=== PATIENT | female | born 1975 | race Hispanic/Latino ===

== ENCOUNTER → 2019-03-15 | Day surgery (SDC) | payer BC ==
[2019-03-12 12:26] LABS: BASOPHILS % 0.8 % (0.0-1.0); EOSINOPHILS # (AUTO) 0.2 (0.0-0.4); HEMATOCRIT 40.2 % (34.2-44.1); HEMOGLOBIN 13.6 g/dL (12.0-16.0); LYMPHOCYTES # (AUTO) 1.9 (1.0-3.2); LYMPHOCYTES % 39.7 % (18.0-39.1); MEAN CORPUSCULAR HEMOGLOBIN 30.4 pg (28-32); MEAN CORPUSCULAR HGB CONC 33.8 g/dL (31-35); MEAN CORPUSCULAR VOLUME 89.9 fL (81-99); MONOCYTES # (AUTO) 0.4 (0.2-0.8); MONOCYTES % 8.9 % (4.4-11.3); NEUTROPHILS # (AUTO) 2.2 (2.1-6.9); NEUTROPHILS % 46.4 % (38.7-80.0); PLATELET COUNT 216 x10e3/uL (140-360); RED BLOOD COUNT 4.47 x10e6/uL (3.6-5.1)
--- NOTE | 2019-03-12 13:58 | Diagnostic Imaging Report ---
Chest, 2 views, 03/12/2019. History: Preop, foot surgery. Comparison: None available. Findings: The cardiomediastinal silhouette and pulmonary vasculature are within normal limits. The lungs are clear without evidence of consolidation or pleural effusion. Degenerative changes are noted in the thoracic spine. There are no acute osseous or soft tissue abnormalities. Impression: No acute cardiopulmonary abnormality. Signed by: Jn Perera on 03/12/2019 1:54 PM
[2019-03-12 19:16] LABS: ANION GAP 14.8 mmol/L (8-16); BLOOD UREA NITROGEN 15 mg/dL (7-26); BUN/CREATININE RATIO 20 (6-25); CARBON DIOXIDE 25 mmol/L (22-29); CHLORIDE 106 mmol/L (98-107); CREATININE, SERUM 0.75 mg/dL (0.57-1.11); EST GLOMERULAR FILTRATION RATE > 60 ML/MIN (60-); GLUCOSE 68 mg/dL (74-118); POTASSIUM 4.8 mmol/L (3.5-5.1); SODIUM 141 mmol/L (136-145)
[~2019-03-15] MED LIST: B12 PO; BLACK COHOSH160 MG PO; BUPIVACAINE HCL 0.5% INJ 30 ML VIAL INJ ONE; CEFAZOLIN SOD 1 GM VIAL ONE; DEXAMETHASONE SOD PHOS INJ 4 MG/ML VIAL ONE; FENTANYL CITRATE/PF 100MCG/2 ML INJ ONE; FERROUS SULFAT324 MG PO; FIBER TABS625 MG PO; FISH OIL CONC1000 MG PO; HAIR, SKIN & N1 EACH PO; HYDROMORPHONE 1MG/1ML INJ ONE; KETAMINE HCL INJ 50 MG/ML 10 ML VIAL ONE; KETOROLAC TROMETHAMINE 30 MG/ML VIAL ONE; LIDOCAINE HCL 2% LOCAL INJ 5 ML SDV VIAL INJ ONE; MACA500 MG PO; MIDAZOLAM HCL 2 MG/2 ML VIAL ONE; MIDAZOLAM HCL 5MG/ML 2ML VIAL ONE; NEOSTIGMINE 1 MG/ML 10ML VIAL ONE; ONDANSETRON HCL INJ 2MG/ML 2ML 2 MG/ML VIAL ONE; PROPOFOL IV EMULSION 10 MG/ML 20 ML VIAL ONE; VITAMIN D400 UNIT PO; WOMENS ONE A DAY PO
--- OUTSIDE RECORDS SUMMARY | 2019-03-15 06:11 | XMS REPORT | Continuity of Care Document ---
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 Name Role Phone [employer] Unavailable Unavailable Problems Problem Status Onset Date Classification Date Reported Comments Source 6 MONTH FU Active 10/19/2018 [facility] UNK Active 07/13/2018 [facility] Fibrosclerosis of left breast 05/09/2018 11/13/2018 [facility] Other specified disorders of breast 04/25/2018 11/05/2018 [facility] MASS Active 04/18/2018 [facility] Encounter for screening mammogram for malignant neoplasm of breast 04/14/2018 10/15/2018 [facility] DX: LEFT ASYMMETRIC DENSITY Active 04/04/2018 [facility] SCREENINGNO PAIN,LUMPS OR DC Active 03/16/2018 [facility] Z12.31 Active 01/27/2017 [facility] CPT 75797, IRON DEFICIENCY ANEMIA D50.9 Active 07/24/2015 [facility] Atypical endometrial hyperplasia (disorder) Active Problem 01/23/2019 [facility] Impaired glucose tolerance (disorder) Resolved Problem 01/23/2019 [facility] Cough (finding) Active Problem 01/23/2019 [facility] Iron deficiency anemia (disorder) Active Problem 01/23/2019 [facility] Irregular heart beat (finding) Resolved Problem 01/23/2019 [facility] Numbness of upper limb (finding) Active Problem 01/23/2019 right [facility] Prolapsed lumbar intervertebral disc (disorder) Active Problem 01/23/2019 [facility] Varicose veins of lower extremity (disorder) Active Problem 01/23/2019 [facility] Medications Medication Details Route Status Patient Instructions Ordering Provider Order Date Source Enoxaparin 40 mg, 0.4 mL, Route: SUB-Q, Drug form: INJ, [id number], Dosing Weight 78.273, kg, Start date: 08/22/18 9:30:00 FRICTION SAW OPERATOR, Stop date: 09/20/18 9:30:00 CDTNotes: (Same as: Lovenox) Inactive 08/22/2018 [facility] sennosides, HALFWAY 17.2 mg, 2 tab, Route: PO, Drug Form: TAB, Dosing Weight 78.273, kg, Daily, Start date: 08/22/18 9:00:00 FRICTION SAW OPERATOR, Duration: 30 day, Stop date: 09/20/18 9:00:00 CDTNotes: (Same as: Senokot) Inactive 08/22/2018 [facility] Motrin 600 mg oral tablet 600 mg=1 tab, PO, Q6H, PRN Pain, take with food, # 30 tab, 0 Refill(s) Active 08/22/2018 [facility] tramadol hydrochloride 50 MG Oral Tablet 50 mg=1 tab, PO, Q4H, PRN Pain Score 4-6, # 30 tab, 0 Refill(s) Active 08/22/2018 [facility] Acetaminophen 500 MG Oral Tablet 1,000 mg=2 tab, PO, Q8H, X 14 day, # 84 tab, 0 Refill(s) Active 08/22/2018 [facility] gabapentin 300 MG Oral Capsule 300 mg=1 cap, PO, Q8H, # 42 cap, 0 Refill(s) Active 08/22/2018 [facility] Acetaminophen 1,000 mg, 2 tab, Route: PO, Drug form: TAB, Q6H, Dosing Weight 78.273, kg, Start date: 08/21/18 18:00:00 FRICTION SAW OPERATOR, Duration: 30 day, Stop date: 09/20/18 12:00:00 CDTNotes: Max acetaminophen 4000 mg/day (4 gm/day). (Same as: Tylenol Extra Strength) No Longer Active 08/22/2018 [facility] Celebrex 200 mg, 1 cap, Route: PO, Drug form: CAP, BID, Dosing Weight 78.273, kg, Start date: 08/21/18 17:00:00 FRICTION SAW OPERATOR, Duration: 30 day, Stop date: 09/20/18 9:00:00 CDTNotes: NSAID. Please check indication. Not for seizure. (Same As: CeleBREX) No Longer Active 08/21/2018 [facility] Magnesium Oxide 400 mg, 1 tab, Route: PO, Drug form: TAB, BID, Dosing Weight 78.273, kg, Start date: 08/21/18 17:00:00 FRICTION SAW OPERATOR, Duration: 30 day, Stop date: 09/20/18 9:00:00 CDTNotes: (Same as: Mag-Ox 400) Magnesium oxide [id number] elemental magnesium Dose=____mg magnesium oxide (___mg elemental magnesium) No Longer Active 08/21/2018 [facility] gabapentin 300 mg, 1 cap, Route: PO, Drug form: CAP, Q8H, Dosing Weight 78.273, kg, (CrCl > 60 ml/min), Start date: 08/21/18 16:00:00 FRICTION SAW OPERATOR, Duration: 30 day, Stop date: 09/20/18 8:00:00 CDTNotes: (Same as: Neuro ntin) No Longer Active 08/21/2018 [facility] Diphenhydramine 12.5 mg, Route: IVP, Drug form: INJ, Q6H, Dosing Weight 78.273, kg, PRN Itching, Start date: 08/21/18 13:12:00 FRICTION SAW OPERATOR, Duration: 30 day, Stop date: 09/20/18 13:11:00 CDT No Longer Active 08/21/2018 [facility] Ondansetron 4 mg, Route: IVP, ONCE, Dosing Weight 78.273, kg, PRN Nausea & Vomiting, Start date: 08/21/18 13:12:00 FRICTION SAW OPERATOR No Longer Active 08/21/2018 [facility] Promethazine 6.25 mg, Route: IVPB, ONCE, Dosing Weight 78.273, kg, PRN Nausea & Vomiting, Start date: 08/21/18 13:12:00 FRICTION SAW OPERATOR Inactive 08/21/2018 [facility] Meperidine 12.5 mg, Route: IVP, Q30Min, Dosing Weight 78.273, kg, PRN Other -See Comment, For shivering, Start date: 08/21/18 13:12:00 FRICTION SAW OPERATOR, Duration: 2 doses or times, Stop date: Limited # of times No Longer Active 08/21/2018 [facility] Fentanyl 50 microgram, Route: IVP, Q5Min, Dosing Weight 78.273, kg, PRN Pain Score 7-10, Priority: Routine, Start date: 08/21/18 13:12:00 FRICTION SAW OPERATOR, Duration: 2 doses or times, Stop date: Limited # of times No Longer Active 08/21/2018 [facility] Flumazenil 0.2 mg, Route: IVP, PRN, Dosing Weight 78.273, kg, PRN Benzodiazepine Reversal, Initial dose, Start date: 08/21/18 13:12:00 FRICTION SAW OPERATOR, Duration: 30 day, Stop date: 09/20/18 14:11:00 CDT No Longer Active 08/21/2018 [facility] Naloxone 0.4 mg, Route: IVP, Q2MIN, Dosing Weight 78.273, kg, PRN Narcotic Reversal, Start date: 08/21/18 13:12:00 FRICTION SAW OPERATOR, Duration: 8 doses or times, Stop date: Limited # of times No Longer Active 08/21/2018 [facility] Acetaminophen 1,000 mg, Route: PO, Drug form: TAB, ONCE, Dosing Weight 78.273, kg, PRN Pain Score 1-3, Start date: 08/21/18 13:12:00 FRICTION SAW OPERATOR No Longer Active 08/21/2018 [facility] Labetalol 10 mg, Route: IVP, Q5Min, Dosing Weight 78.273, kg, PRN Elevated BP, Start date: 08/21/18 13:12:00 FRICTION SAW OPERATOR, Duration: 5 doses or times, Stop date: Limited # of times No Longer Active 08/21/2018 [facility] Hydromorphone 0.5 mg, Route: IVP, Q5Min, Dosing Weight 78.273, kg, PRN Pain Score 7-10, Start date: 08/21/18 13:12:00 FRICTION SAW OPERATOR, Duration: 4 doses or times, Stop date: Limited # of times No Longer Active 08/21/2018 [facility] Oxycodone 10 mg, Route: PO, Drug form: TAB, Q4H, Dosing Weight 78.273, kg, PRN Pain Score 7-10, Start date: 08/21/18 13:12:00 FRICTION SAW OPERATOR, Duration: 30 day, Stop date: 09/20/18 13:11:00 CDT No Longer Active 08/21/2018 [facility] Hydralazine 10 mg, Route: IVP, Q20Min, Dosing Weight 78.273, kg, PRN Elevated BP, Start date: 08/21/18 13:12:00 FRICTION SAW OPERATOR, Duration: 2 doses or times, Stop date: Limited # of times No Longer Active 08/21/2018 [facility] sugammadex (ANES) Route: IV, Drug form: SOLN, ONCE, Stop date: 08/21/18 12:38:00 FRICTION SAW OPERATOR Inactive 08/21/2018 [facility] Zofran 4 mg, 1 tab, Route: PO, Drug form: TAB, Q8H, Dosing Weight 78.273, kg, PRN Nausea, Start date: 08/21/18 12:28:00 FRICTION SAW OPERATOR, Duration: 30 day, Stop date: 09/20/18 12:27:00 CDTNotes: (Same as: Zofran) No Longer Active 08/21/2018 [facility] Reglan 10 mg, 2 mL, Route: IVP, Drug form: INJ, Q6H, Dosing Weight 78.273, kg, PRN Nausea & Vomiting, Start date: 08/21/18 12:28:00 FRICTION SAW OPERATOR, Duration: 30 day, Stop date: 09/20/18 12:27:00 CDTNotes: (Same as: Reglan) No Longer Active 08/21/2018 [facility] Simethicone 80 mg, 1 tab, Route: CHEW, Drug form: CHEWTAB, QID, Dosing Weight 78.273, kg, PRN Gas, Start date: 08/21/18 12:28:00 FRICTION SAW OPERATOR, Duration: 30 day, Stop date: 09/20/18 12:27:00 CDTNotes: (Same as: Mylicon) No Longer Active 08/21/2018 [facility] Phenergan 12.5 mg, 0.5 mL, Route: IVPB, Q4H, Dosing Weight 78.273, kg, PRN Nausea & Vomiting, Start date: 08/21/18 12:28:00 FRICTION SAW OPERATOR, Duration: 30 day, Stop date: 09/20/18 12:27:00 CDTNotes: Do not give IV push. (Same as: Phenergan) No Longer Active 08/21/2018 [facility] Tramadol 50 mg, 1 tab, Route: PO, Drug form: TAB, Q4H, Dosing Weight 78.273, kg, PRN Pain Score 4-6, Start date: 08/21/18 12:28:00 FRICTION SAW OPERATOR, Duration: 30 day, Stop date: 09/20/18 12:27:00 CDTNotes: Not to exceed 4 00mg/day. (Same As: Ultram) No Longer Active 08/21/2018 [facility] Calcium Chloride 0.002 MEQ/ML / Glucose 50 MG/ML / Potassium Chloride 0.004 MEQ/ML / Sodium Chloride 0.147 MEQ/ML Injectable Solution 1,000 mL, Rate: 125 ml/hr, Infuse over: 8 hr, Route: IV, Dosing Weight 78.273 kg, Total Volume: 1,000, Start date: 08/21/18 12:28:00 FRICTION SAW OPERATOR, Duration: 30 day, Stop date: 09/20/18 12:27:00 CDT, 1.89, m2 No Longer Active 08/21/2018 [facility] acetaminophen (ANES) Route: IV, Drug form: INJ, ONCE, Stop date: 08/21/18 10:19:00 FRICTION SAW OPERATOR Inactive 08/21/2018 [facility] dexamethasone (ANES) Route: IV, Drug form: INJ, ONCE, Stop date: 08/21/18 9:49:00 FRICTION SAW OPERATOR Inactive 08/21/2018 [facility] ondansetron (ANES) Route: IV, Drug form: INJ, ONCE, Stop date: 08/21/18 9:49:00 FRICTION SAW OPERATOR Inactive 08/21/2018 [facility] propofol (ANES) Route: IV, Drug form: INJ, ONCE, Stop date: 08/21/18 9:44:00 FRICTION SAW OPERATOR Inactive 08/21/2018 [facility] lidocaine (ANES) Route: IV, Drug form: INJ, ONCE, Stop date: 08/21/18 9:44:00 FRICTION SAW OPERATOR Inactive 08/21/2018 [facility] glycopyrrolate (ANES) Route: IV, Drug form: INJ, ONCE, Stop date: 08/21/18 9:19:00 FRICTION SAW OPERATOR Inactive 08/21/2018 [facility] midazolam (ANES) Route: IV, Drug form: SOLN, ONCE, Stop date: 08/21/18 9:19:00 FRICTION SAW OPERATOR Inactive 08/21/2018 [facility] ketAMINE (ANES) Route: IV, Drug form: INJ, ONCE, Stop date: 08/21/18 9:14:00 FRICTION SAW OPERATOR Inactive 08/21/2018 [facility] ePHEDrine (ANES) Route: IV, Drug form: INJ, ONCE, Stop date: 08/21/18 9:14:00 FRICTION SAW OPERATOR Inactive 08/21/2018 [facility] rocuronium (ANES) Route: IV, Drug form: INJ, ONCE, Stop date: 08/21/18 8:59:00 FRICTION SAW OPERATOR Inactive 08/21/2018 [facility] ceFAZolin (ANES) Route: IV, Drug form: INJ, ONCE, Stop date: 08/21/18 8:54:00 FRICTION SAW OPERATOR Inactive 08/21/2018 [facility] metroNIDAZOLE (ANES) Route: IV, Drug form: INJ, ONCE, Stop date: 08/21/18 8:54:00 FRICTION SAW OPERATOR Inactive 08/21/2018 [facility] dexmedetomidine (ANES) 200 microgram Route: IV, Drug form: INJ, Start date: 08/21/18 8:00:00 FRICTION SAW OPERATOR, Stop date: 08/21/18 9:00:00 FRICTION SAW OPERATOR Inactive 08/21/2018 [facility] Sodium Chloride 0.9% IV (ANES) 1000 mL Route: IV, Total Volume: 1,000, Start date: 08/21/18 8:00:00 FRICTION SAW OPERATOR, Stop date: 08/21/18 9:00:00 FRICTION SAW OPERATOR Inactive 08/21/2018 [facility] Calcium Chloride 0.0014 MEQ/ML / Potassium Chloride 0.004 MEQ/ML / Sodium Chloride 0.103 MEQ/ML / Sodium Lactate 0.028 MEQ/ML Injectable Solution 1,000 mL, Rate: 25 ml/hr, Infuse over: 40 hr, Route: IV, Dosing Weight 78.273 kg, Total Volume: 1,000, Start date: 08/21/18 7:56:00 FRICTION SAW OPERATOR, Duration: 30 day, Stop date: 09/20/18 7:55:00 CDT, 1.89, m2 Inactive 08/21/2018 [facility] Lactated Ringers Injection IV (ANES) 1000 mL Route: IV, Total Volume: 1,000, Start date: 08/21/18 7:48:00 FRICTION SAW OPERATOR, Stop date: 08/21/18 8:48:00 FRICTION SAW OPERATOR Inactive 08/21/2018 [facility] 72 HR Scopolamine 0.0139 MG/HR Transdermal Patch 1 patch, Route: TOP, Drug Form: ERFILM, Dosing Weight 78.273, kg, PRE OP, Start date: 08/21/18 7:00:00 FRICTION SAW OPERATOR, Duration: 30 day, Stop date: 09/20/18 7:59:00 CDT Inactive 08/21/2018 [facility] gabapentin 300 MG Oral Capsule 300 mg, Route: PO, Drug form: CAP, ONCE, Dosing Weight 78.273, kg, Start date: 08/21/18 6:51:00 FRICTION SAW OPERATOR, Stop date: 08/21/18 6:51:00 FRICTION SAW OPERATOR Inactive 08/21/2018 [facility] Celebrex 400 mg, Route: PO, Drug form: CAP, ONCE, Dosing Weight 78.273, kg, Start date: 08/21/18 6:51:00 FRICTION SAW OPERATOR, Stop date: 08/21/18 6:51:00 FRICTION SAW OPERATOR Inactive 08/21/2018 [facility] IC-Green 25 mg, Route: InFILtration(local), Drug form: PDR/INJ, ONCE, Dosing Weight 78.273, kg, Start date: 08/21/18 6:47:00 FRICTION SAW OPERATOR, Stop date: 08/21/18 6:47:00 CSTNotes: (Same as: Cardio Green) Inactive 08/21/2018 [facility] Exparel 20 mL, Route: InFILtration(local), Drug Form: INJ, Dosing Weight 78.273, kg, ONCALL, For Hemorrhoidectomy, Start date: 08/20/18 20:00:00 FRICTION SAW OPERATOR, Duration: 30 day, Stop date: 09/19/18 20:59:00 CDTNotes: (Same as: Exparel) NOT FOR IV use Postoperative analgesia: Infiltration (local): Dose is based on surgical site and volume required to cover the area (in general, the maximum total dose is 266 mg). Bunionectomy: 7 mL into the tissues surrounding the osteotomy and 1 mL into the subcutaneous tissue of the surgical site (total dose=8 mL [106 mg]) Hemorrhoidectomy: 30 mL (20 mL vial diluted with 10 mL NS) divided and administered as 6 injections of 5 mL each (total dose=30 mL [266 mg]) No Longer Active 08/21/2018 [facility] Rocephin 0 Refill(s) No Longer Active 08/07/2018 [facility] azithromycin 500 mg oral tablet 500 mg=1 tab, PO, Daily, # 3 tab, 0 Refill(s) No Longer Active 08/07/2018 [facility] Vitamin B12 1000 mcg oral tablet 1,000 microgram=1 tab, PO, Daily, # 30 tab, 0 Refill(s) Active 08/07/2018 [facility] One-A-Day Women oral tablet 1 tab, PO, Daily, # 30 tab, 0 Refill(s) Active 08/07/2018 [facility] ferrous sulfate 160 mg oral tablet, extended release 160 mg=1 tab, PO, Daily, # 30 tab, 0 Refill(s) No Longer Active 08/07/2018 [facility] Benadryl 25 mg, 1 tab, Route: PO, Drug form: TAB, Q6H, PRN Itching, Start date: 08/28/15 8:30:00, Duration: 12 hr, Stop date: 08/28/15 20:29:00 Inactive 08/28/2015 [facility] acetaminophen 500 mg, 1 tab, Route: PO, Drug form: TAB, Q8H, PRN Other -See Comment, Start date: 08/28/15 8:30:00, Duration: 12 hr, Stop date: 08/28/15 20:29:00Notes: Max acetaminophen 4000 mg/day (4 gm/day). (Same as: Tylenol Extra Strength) Inactive 08/28/2015 [facility] Venofer + Sodium Chloride 0.9% IV 250 mL 300 mg, 15 mL, Route: IV, Drug form: INJ, ONCALL, Start date: 08/28/15 8:30:00, Duration: 12 hr, Stop date: 08/28/15 20:29:00Notes: Each 5ml contains 100mg elemental iron. Mix with NS (Same as:Venofer) bags at a conc=1 - 2 mg/mL are stable x7 days at Room Temp in Ambient Light Administer IV only. MEDICATION WASTE Product Size: 100 mg Product Wasted: ___ mg Inactive 08/28/2015 [facility] acetaminophen 500 mg, 1 tab, Route: PO, Drug form: TAB, Q8H, PRN Other -See Comment, Start date: 08/21/15 9:30:00, Duration: 12 hr, Stop date: 08/21/15 21:29:00Notes: Max acetaminophen 4000 mg/day (4 gm/day). (Same as: Tylenol Extra Strength) Inactive 08/21/2015 [facility] Venofer + Sodium Chloride 0.9% IV 250 mL 300 mg, 15 mL, Route: IV, Drug form: INJ, ONCALL, Start date: 08/21/15 9:30:00, Duration: 12 hr, Stop date: 08/21/15 21:29:00Notes: Each 5ml contains 100mg elemental iron. Mix with NS (Same as:Venofer) bags at a conc=1 - 2 mg/mL are stable x7 days at Room Temp in Ambient Light Administer IV only. MEDICATION WASTE Product Size: 100 mg Product Wasted: ___ mg Inactive 08/21/2015 [facility] Benadryl 25 mg, 1 tab, Route: PO, Drug form: TAB, Q6H, PRN Itching, Start date: 08/21/15 9:30:00, Duration: 12 hr, Stop date: 08/21/15 21:29:00 Inactive 08/21/2015 [facility] acetaminophen 500 mg, 1 tab, Route: PO, Drug form: TAB, Q8H, PRN Other -See Comment, Start date: 08/12/15 12:00:00, Duration: 12 hr, Stop date: 08/12/15 23:59:00Notes: Max acetaminophen 4000 mg/day (4 gm/day). (S opal as: Tylenol Extra Strength) Inactive 08/12/2015 [facility] Benadryl 25 mg, 1 tab, Route: PO, Drug form: TAB, Q6H, PRN Itching, Start date: 08/12/15 12:00:00, Duration: 12 hr, Stop date: 08/12/15 23:59:00 Inactive 08/12/2015 [facility] Venofer + Sodium Chloride 0.9% IV 250 mL 300 mg, 15 mL, Route: IV, Drug form: INJ, ONCALL, Start date: 08/12/15 12:00:00, Duration: 12 hr, Stop date: 08/12/15 23:59:00Notes: Each 5ml contains 100mg elemental iron. Mix with NS (Same as:Venofer) bags at a conc=1 - 2 mg/mL are stable x7 days at Room Temp in Ambient Light Administer IV only. MEDICATION WASTE Product Size: 100 mg Product Wasted: ___ mg No Longer Active 08/12/2015 [facility] Venofer + Sodium Chloride 0.9% IV 250 mL 300 mg, 15 mL, Route: IV, Drug form: INJ, ONCALL, Start date: 08/05/15 9:00:00, Duration: 12 hr, Stop date: 08/05/15 20:59:00Notes: Each 5ml contains 100mg elemental iron. Mix with NS (Same as:Venofer) bags at a conc=1 - 2 mg/mL are stable x7 days at Room Temp in Ambient Light Administer IV only. MEDICATION WASTE Product Size: 100 mg Product Wasted: ___ mg No Longer Active 08/05/2015 [facility] Benadryl 25 mg, 1 tab, Route: PO, Drug form: TAB, Q6H, PRN Itching, Start date: 08/05/15 9:00:00, Duration: 12 hr, Stop date: 08/05/15 20:59:00 Inactive 08/05/2015 [facility] acetaminophen 500 mg, 1 tab, Route: PO, Drug form: TAB, Q8H, PRN Other -See Comment, Start date: 08/05/15 9:00:00, Duration: 12 hr, Stop date: 08/05/15 20:59:00Notes: Max acetaminophen 4000 mg/day (4 gm/day). (Same as: Tylenol Extra Strength) Inactive 08/05/2015 [facility] Venofer + Sodium Chloride 0.9% IV 235 mL 300 mg, 15 mL, Route: IV, Drug form: INJ, ONCALL, Start date: 07/31/15 11:00:00, Duration: 1 day, Stop date: 08/01/15 10:59:00Notes: Each 5ml contains 100mg elemental iron. Mix with NS (Same as:Venofer) AT A CONC=1-2 mg/mL, EXPIRES AFTER 7 DAYS AT ROOM TEMP . Administer IV only. MEDICATION WASTE Product Size: 100 mg Product Wasted: ___ mg Inactive 07/31/2015 [facility] Benadryl 25 mg, 1 tab, Route: PO, Drug form: TAB, Q6H, PRN Itching, Start date: 07/31/15 11:00:00, Duration: 1 day, Stop date: 08/01/15 10:59:00 No Longer Active 07/31/2015 [facility] acetaminophen 500 mg, 1 tab, Route: PO, Drug form: TAB, Q8H, PRN Other -See Comment, Start date: 07/31/15 11:00:00, Duration: 1 day, Stop date: 08/01/15 10:59:00Notes: Max acetaminophen 4000 mg/day (4 gm/day). (S opal as: Tylenol Extra Strength) No Longer Active 07/31/2015 [facility] Vitamin B12 1,000 microgram, 1 mL, Route: IM, Drug form: INJ, ONCALL, Start date: 07/28/15 10:00:00, Duration: 80 hr, Stop date: 07/31/15 19:59:00Notes: (Same As: Vitamin B12) No Longer Active 07/28/2015 [facility] Benadryl 25 mg, 1 tab, Route: PO, Drug form: TAB, Q6H, PRN Itching, Start date: 07/28/15 10:00:00, Duration: 80 hr, Stop date: 07/31/15 20:00:00 No Longer Active 07/28/2015 [facility] Venofer + Sodium Chloride 0.9% IV 250 mL 300 mg, 15 mL, Route: IV, Drug form: INJ, ONCALL, Start date: 07/28/15 10:00:00, Duration: 80 hr, Stop date: 07/31/15 20:00:00Notes: Each 5ml contains 100mg elemental iron. Mix with NS (Same as:Venofer) AT A CONC=1-2 mg/mL, EXPIRES AFTER 7 DAYS AT ROOM TEMP . Administer IV only. MEDICATION WASTE Product Size: 100 mg Product Wasted: ___ mg No Longer Active 07/28/2015 [facility] acetaminophen 500 mg, 1 tab, Route: PO, Drug form: TAB, Q8H, PRN Other -See Comment, Start date: 07/28/15 10:00:00, Duration: 80 hr, Stop date: 07/31/15 19:59:00Notes: Max acetaminophen 4000 mg/day (4 gm/day). (S opal as: Tylenol Extra Strength) No Longer Active 07/28/2015 [facility] Allergies, Adverse Reactions, Alerts Substance Category Reaction Severity Reaction type Status Date Reported Comments Source No Known Medication Allergies Assertion Drug allergy [facility] Immunizations No Data Provided for This Section Results Order Name Results Value Reference Range Date Interpretation Comments Source CHEM PANEL Magnesium Lvl 2.2 1.8 - 2.4 08/22/2018 [facility] CHEM PANEL Phosphorus 4.0 2.5 - 4.5 08/22/2018 [facility] CHEM PANEL B/C Ratio 14 6 - 25 08/22/2018 [facility] CHEM PANEL AGAP 11.2 10.0 - 20.0 08/22/2018 [facility] CHEM PANEL A/G Ratio 1.0 0.7 - 1.6 08/22/2018 [facility] CHEM PANEL Globulin 2.9 2.7 - 4.2 08/22/2018 [facility] CHEM PANEL eGFR 109 08/22/2018 Result Comment: The eGFR is calculated using the CKD-EPI formula. In most young, healthy individuals the eGFR will be >90 mL/min/1.73m2. The eGFR declines with age. An eGFR of 60-89 may be normal in some populations, particularly the elderly, for whom the CKD-EPI formula has not been extensively validated. Use of the eGFR is not recommended in the following populations:

Individuals with unstable creatinine concentrations, including patients and those with serious co-morbid conditions.

Patients with extremes in muscle mass or diet.

The data above are obtained from the National Kidney Disease Education Program (NKDEP) which additionally recommends that when the eGFR is used in patients with extremes of body mass index for purposes of drug dosing, the eGFR should be multiplied by the estimated BMI. [facility] CHEM PANEL Albumin Lvl 2.9 3.5 - 5.0 08/22/2018 [facility] CHEM PANEL Total Protein 5.8 6.4 - 8.4 08/22/2018 [facility] CHEM PANEL Chloride Lvl 110 95 - 109 08/22/2018 [facility] CHEM PANEL Calcium Lvl 8.3 8.5 - 10.5 08/22/2018 [facility] CHEM PANEL CO2 26 24 - 32 08/22/2018 [facility] CHEM PANEL ALT 18 0 - 65 08/22/2018 [facility] CHEM PANEL Alk Phos 77 39 - 136 08/22/2018 [facility] CHEM PANEL AST 22 0 - 37 08/22/2018 [facility] CHEM PANEL Bili Total 0.5 0.2 - 1.3 08/22/2018 [facility] CHEM PANEL Creatinine Lvl 0.63 0.50 - 1.40 08/22/2018 [facility] CHEM PANEL BUN 9 7 - 22 08/22/2018 [facility] CHEM PANEL Glucose Lvl 119 70 - 99 08/22/2018 [facility] CHEM PANEL Potassium Lvl 4.2 3.5 - 5.1 08/22/2018 [facility] CHEM PANEL Sodium Lvl 143 135 - 145 08/22/2018 [facility] HEMATOLOGY Lymphocytes # 1.3 1.0 - 5.5 08/22/2018 [facility] Monocytes # 0.6 0.0 - 0.8 08/22/2018 [facility] HEMATOLOGY Lymphocytes 17.9 20.0 - 40.0 08/22/2018 [facility] HEMATOLOGY Segs 72.7 45.0 - 75.0 08/22/2018 [facility] HEMATOLOGY Basophils 0.2 0.0 - 1.0 08/22/2018 [facility] HEMATOLOGY Neutrophils # 5.1 1.5 - 8.1 08/22/2018 [facility] HEMATOLOGY Eosinophils 0.1 0.0 - 4.0 08/22/2018 [facility] Monocytes 9.1 2.0 - 12.0 08/22/2018 [facility] Platelet 201 133 - 450 08/22/2018 [facility] MPV 8.0 7.4 - 10.4 08/22/2018 [facility] RDW 14.3 11.5 - 14.5 08/22/2018 [facility] WBC 7.0 3.7 - 10.4 08/22/2018 [facility] RBC 3.86 4.20 - 5.40 08/22/2018 [facility] MCH 30.1 27.0 - 31.0 08/22/2018 [facility] MCV 91.4 80.0 - 98.0 08/22/2018 [facility] MCHC 32.9 32.0 - 36.0 08/22/2018 [facility] Hct 35.3 36.0 - 48.0 08/22/2018 [facility] Hgb 11.6 12.0 - 16.0 08/22/2018 [facility] BLOOD BANK RESULTS Antibody Scrn Negative (08/21/18 6:44 AM) 08/21/2018 [facility] BLOOD BANK RESULTS ABO/Rh O POS 08/21/2018 [facility] URINE CHEM U Preg Negative (08/21/18 6:26 AM) Negative 08/21/2018 [facility] BLOOD BANK RESULTS Antibody Scrn Negative (08/07/18 10:50 AM) 08/07/2018 [facility] BLOOD BANK RESULTS ABO/Rh O POS 08/07/2018 [facility] CHEM PANEL A/G Ratio 1.1 0.7 - 1.6 08/07/2018 [facility] CHEM PANEL Globulin 3.7 2.7 - 4.2 08/07/2018 [facility] CHEM PANEL AGAP 11.9 10.0 - 20.0 08/07/2018 [facility] CHEM PANEL B/C Ratio 22 6 - 25 08/07/2018 [facility] CHEM PANEL eGFR 106 08/07/2018 Result Comment: The eGFR is calculated using the CKD-EPI formula. In most young, healthy individuals the eGFR will be >90 mL/min/1.73m2. The eGFR declines with age. An eGFR of 60-89 may be normal in some populations, particularly the elderly, for whom the CKD-EPI formula has not been extensively validated. Use of the eGFR is not recommended in the following populations:

Individuals with unstable creatinine concentrations, including patients and those with serious co-morbid conditions.

Patients with extremes in muscle mass or diet.

The data above are obtained from the National Kidney Disease Education Program (NKDEP) which additionally recommends that when the eGFR is used in patients with extremes of body mass index for purposes of drug dosing, the eGFR should be multiplied by the estimated BMI. [facility] CHEM PANEL ALT 18 0 - 65 08/07/2018 [facility] CHEM PANEL AST 19 0 - 37 08/07/2018 [facility] CHEM PANEL Alk Phos 123 39 - 136 08/07/2018 [facility] CHEM PANEL Bili Total 0.3 0.2 - 1.3 08/07/2018 [facility] CHEM PANEL Potassium Lvl 3.9 3.5 - 5.1 08/07/2018 [facility] CHEM PANEL Chloride Lvl 107 95 - 109 08/07/2018 [facility] CHEM PANEL CO2 28 24 - 32 08/07/2018 [facility] CHEM PANEL Albumin Lvl 3.9 3.5 - 5.0 08/07/2018 [facility] CHEM PANEL Total Protein 7.6 6.4 - 8.4 08/07/2018 [facility] CHEM PANEL Calcium Lvl 9.4 8.5 - 10.5 08/07/2018 [facility] CHEM PANEL BUN 15 7 - 22 08/07/2018 [facility] CHEM PANEL Creatinine Lvl 0.67 0.50 - 1.40 08/07/2018 [facility] CHEM PANEL Glucose Lvl 91 70 - 99 08/07/2018 [facility] CHEM PANEL Sodium Lvl 143 135 - 145 08/07/2018 [facility] CHEM PANEL Magnesium Lvl 2.2 1.8 - 2.4 08/07/2018 [facility] Monocytes # 0.5 0.0 - 0.8 08/07/2018 [facility] HEMATOLOGY Eosinophils # 0.3 0.0 - 0.5 08/07/2018 [facility] Basophils # 0.1 0.0 - 0.2 08/07/2018 [facility] HEMATOLOGY Segs 56.5 45.0 - 75.0 08/07/2018 [facility] Neutrophils # 3.8 1.5 - 8.1 08/07/2018 [facility] Lymphocytes 30.6 20.0 - 40.0 08/07/2018 [facility] Basophils 1.0 0.0 - 1.0 08/07/2018 [facility] Eosinophils 4.1 0.0 - 4.0 08/07/2018 [facility] Lymphocytes # 2.1 1.0 - 5.5 08/07/2018 [facility] Monocytes 7.8 2.0 - 12.0 08/07/2018 [facility] RBC 4.79 4.20 - 5.40 08/07/2018 [facility] Hgb 14.3 12.0 - 16.0 08/07/2018 [facility] WBC 6.8 3.7 - 10.4 08/07/2018 [facility] MCV 89.0 80.0 - 98.0 08/07/2018 [facility] MCHC 33.5 32.0 - 36.0 08/07/2018 [facility] RDW 13.7 11.5 - 14.5 08/07/2018 [facility] MCH 29.8 27.0 - 31.0 08/07/2018 [facility] Hct 42.6 36.0 - 48.0 08/07/2018 [facility] Platelet 249 133 - 450 08/07/2018 [facility] MPV 8.0 7.4 - 10.4 08/07/2018 [facility] Pathology Reports No Data Provided for This Section Diagnostic Reports Report Value Date Source Breast Mammo Diag UNI incl CAD MA UNILATERAL LEFT DIGITAL DIAGNOSTIC MAMMOGRAM: 10/25/2018 CLINICAL: /Follow Up left breast benign stereo bx. COMPARISON:Comparison is made to exams dated: 04/18/2018 mammogram, 03/28/2018 mammogram, 03/07/2017 mammogram - [facility], 03/20/2015 mammogram, and 04/26/2018 stereotactic biopsy - [facility]. TECHNIQUE: Mammographic views were obtained using digital acquisition. FINDINGS: The tissue of left breast is heterogeneously dense, which could obscure detection of small masses. There is a stable focal asymmetry in the left breast at 1 o'clock posterior depth. This correlates with the biopsy and the prior exam but was not seen on the prior ultrasound. There is a biopsy clip associated with the focal asymmetry. No other significant masses or calcifications are seen in the breast. There has been no significant interval change. IMPRESSION: BENIGN RECOMMENDATION:The stable focal asymmetry in the left breast is consistent with fibrosis and is benign. There is no mammographic evidence of malignancy. Return to annual mammogram screening schedule is recommended.(03/28/2019) The results were reviewed with the patient. This exam was interpreted at [id number] for [facility]. Dary mckeon/whitney:10/25/2018 08:31:25 Laundry Helper(s): Maddy Perez, [facility] letter sent: BI-RADS 1/2 Mammogram BI-RADS: 2 Benign 10/25/2018 [facility] Stereo Breast BX Uni /Clip Primary SD DESI STEREOTACTIC GUIDED BIOPSY LEFT BREAST WITH MARKING DEVICE INSERTED AND POST DIGITAL MAMMOGRAPHIC IMAGIN04/26/2018 CLINICAL: Stereotactic biopsy for asymmetric density, left upper outer breast. PATIENT CONSENT: Oral and written informed consent was obtained. Risks, benefits, and alternatives were discussed with the patient. Risks include but are not limited to pain, infection, bleeding, incomplete procedure, repeat procedure, pneumothorax, damage to surrounding tissues, and allergic reaction. The patient understands the plan and wishes to proceed. A time out was performed immediately prior to the procedure to confirm the patient's identity (name/date of ) and correct procedure site. Correlation is made to exams dated: 04/18/2018 ultrasound, 04/18/2018 mammogram, 03/28/2018 mammogram, 03/07/2017 mammogram - [facility], 03/20/2015 mammogram, and 04/22/2014 mammogram. A stereotactic guided biopsy was performed for the concerning asymmetry located in the left breast at 1 o'clock posterior depth. This was described on the previous mammography report. The skin was prepped in the usual manner. 10 ccs of 1% lidocaine was administered during the procedure. A skin allie was made in the breast. The abnormality was approached from the craniocaudal aspect using an upright digital mammography unit. A 9 gauge biopsy needle was placed adjacent to the abnormality under computer guidance and confirmatory stereotactic mammography images were obtained to document needle placement. Once the needle was documented to be in the correct location, multiple cores were obtained using an automated biopsy gun. A [employer] T/top hat shaped biopsy clip was inserted into the biopsy cavity. A skin adhesive and a sterile dressing were applied to the access site. Post procedure digital mammographic imaging interpreted on a dedicated mammography workstation demonstrates the clip at the targeted area and partial removal of the abnormality. The specimens were sent to the laboratory for pathological analysis. IMPRESSION: STEREOTACTIC GUIDED BIOPSY BENIGN Stereotactic guided biopsy of the asymmetry in the left breast at 1 o'clock posterior depth was successful with no apparent post procedure complications. Pathology indicates benign results - 'Breast with stromal fibrosis, no tumor seen'. Pathology results are concordant with imaging findings. A follow-up left diagnostic mammogram and possible ultrasound in 6 months is recommended to demonstrate stability.(10/26/2018) This exam was interpreted at [id number] for [facility]. Dary jayt/:05/07/2018 08:38:19 Laundry Helper(s): Maddy Perez [facility] letter sent: Post Bx Results 04/26/2018 [facility] Breast Complete Uni US COMPLETE ULTRASOUND OF LEFT BREAST AND AXILLA: 04/18/2018 CLINICAL: Abnormal mammogram, mammographic nodule/density. COMPARISON:Comparison is made to exams dated: 04/18/2018 mammogram, 03/28/2018 mammogram, 03/07/2017 mammogram - [facility], 03/20/2015 mammogram, and 04/22/2014 mammogram. TECHNIQUE: Color flow and real-time ultrasound of the left breast four quadrants and axilla regions were performed. Thomson scale images of the real-time examination were reviewed. All 4 quadrants, the retroareolar region and axilla are evaluated in this exam. FINDINGS: No abnormalities were seen sonographically in the left breast or the left axilla. IMPRESSION: SUSPICIOUS OF MALIGNANCY There is no sonographic abnormality seen in the left breast to correspond with the mammographic density in the upper outer quadrant, therefore stereotactic biopsy is recommended. The results were reviewed with the patient. SUMMARY: Please see the mammographic report. There is a mammographic only finding requiring a stereotactic biopsy. This exam was interpreted at [id number] for [facility]. Dary mckeon/:04/18/2018 09:45:43 Laundry Helper(s): Nancy Davis, [facility] Ultrasound BI-RADS: 4b Suspicious abnormality - intermediate suspicion of malignancy 04/18/2018 [facility] Breast Mammo Diag UNI w freda incl CAD MA UNILATERAL LEFT DIGITAL DIAGNOSTIC MAMMOGRAM 3D/2D WITH CAD: 04/18/2018 CLINICAL: Asymmetry/Left Callback. Current study was evaluated with a Computer Aided Detection (CAD) system. COMPARISON:Comparison is made to exams dated: 03/28/2018 mammogram, 03/07/2017 mammogram - [facility], 03/20/2015 mammogram, and 04/22/2014 mammogram. TECHNIQUE: Digital Breast Tomosynthesis was performed and utilized for Interpretation. [employer] Version 1.3 was utilized for computer aided detection. FINDINGS: The tissue of left breast is heterogeneously dense, which could obscure detection of small masses. There is a focal asymmetry in the left breast at 1 o'clock posterior depth. This correlates with the prior exam but was not seen on the ultrasound today. No other significant masses or calcifications are seen in the breast. IMPRESSION: SUSPICIOUS OF MALIGNANCY The focal asymmetry in the left breast is at an intermediate suspicion for malignancy. A stereotactic biopsy is recommended. The physician's office was notified. The results were reviewed with the patient. SUMMARY: Ultrasound will be performed at this time; please see dedicated separate report. The patient scheduled her procedure prior to leaving the [facility]. The physician's office was notified at 1046 hours on the day of the exam of the above findings and recommendations. An order for this procedure will need to be provided by the referring physician. This exam was interpreted at [id number] for [facility]. Dary mckeon/:04/18/2018 11:08:10 Laundry Helper(s): Cinda Cortés, [facility] letter sent: BI-RADS 4/5 Mammogram BI-RADS: 4b Suspicious abnormality - intermediate suspicion of malignancy 04/18/2018 [facility] Breast Mammo Scrn EVON w freda incl CAD MA BILATERAL DIGITAL SCREENING MAMMOGRAM 3D/2D WITH CAD: 03/28/2018 CLINICAL: /Routine. Current study was evaluated with a Computer Aided Detection (CAD) system. COMPARISON:Comparison is made to exams dated: 03/07/2017 mammogram - [facility], 03/20/2015 mammogram, and 04/22/2014 mammogram. TECHNIQUE: Digital Breast Tomosynthesis was performed and utilized for Interpretation. [employer] Version 1.3 was utilized for computer aided detection. FINDINGS: The tissue of both breasts is heterogeneously dense, which could obscure detection of small masses. There is a density in the left breast at 1 o'clock posterior depth. This is more prominent. No other significant masses, calcifications, or other findings are seen in either breast. IMPRESSION: INCOMPLETE: NEEDS ADDITIONAL IMAGING EVALUATION RECOMMENDATION:The density in the left breast is indeterminate. Spot CC, spot MLO Tomosynthesis, and lateral views as well as an ultrasound are recommended. This exam was interpreted at [id number] for [facility]. Justina Lombardi M.D. ap/penrad:03/28/2018 15:42:59 Laundry Helper(s): Deanna Calloway, [facility] letter sent: BI-RADS 0 Mammogram BI-RADS: 0 Indeterminate 03/28/2018 [facility] Breast Mammo Scrn EVON w freda incl CAD MA - BREAST MAMMO SCRN EVON W FREDA INCL CAD MA BILATERAL DIGITAL SCREENING MAMMOGRAM 3D/2D WITH CAD: 03/07/2017 CLINICAL: Routine/Screen. 2D digital mammographic images and 3D digital tomosynthesis images were obtained in the CC and MLO projections. Current study was evaluated with a Computer Aided Detection (CAD) system. Comparison is made to exams dated: 03/20/2015 mammogram and 04/22/2014 mammogram. The tissue of both breasts is heterogeneously dense, which could obscure detection of small masses. Patient complains of intermittent breast pain and/or tenderness. There is a benign density and a calcification in the left breast. No significant masses, calcifications, or other findings are seen in either breast. There has been no significant interval change. IMPRESSION: BENIGN Clinical management of the patient's breast complaints is recommended. There is no mammographic evidence of malignancy. A 1 year screening mammogram is recommended. Dary mckeon/whitney:03/14/2017 13:59:39 Laundry Helper: Eloisa Loyd, [facility] This exam was dictated and interpreted by [id number] for [facility]. letter sent: Normal exam Mammogram BI-RADS: 2 Benign 03/07/2017 [facility] Consultation Notes No Data Provided for This Section Discharge Summaries No Data Provided for This Section History and Physicals No Data Provided for This Section Vital Signs Vital Sign Value Date Comments Source Respitory Rate 16 08/22/2018 [facility] Systolic (mm Hg) 90 08/22/2018 [facility] Diastolic (mm Hg) 56 08/22/2018 [facility] Temperature Oral (F) 98.3 F 08/22/2018 [facility] Heart Rate 82 08/22/2018 [facility] Respitory Rate 18 08/22/2018 [facility] Respitory Rate 14 08/22/2018 [facility] Heart Rate 66 08/22/2018 [facility] Systolic (mm Hg) 95 08/22/2018 [facility] Diastolic (mm Hg) 63 08/22/2018 [facility] Temperature Oral (F) 98.2 F 08/22/2018 [facility] Temperature Oral (F) 98.7 F 08/22/2018 [facility] Heart Rate 72 08/22/2018 [facility] Systolic (mm Hg) 99 08/22/2018 [facility] Diastolic (mm Hg) 62 08/22/2018 [facility] Height 160.02 cm 08/07/2018 [facility] BMI Calculated 30.57 08/07/2018 [facility] Weight 78.273 08/07/2018 [facility] Heart Rate 78 08/28/2015 [facility] Respitory Rate 18 08/28/2015 [facility] Temperature Oral (F) 98.3 F 08/28/2015 [facility] Systolic (mm Hg) 96 08/28/2015 [facility] Diastolic (mm Hg) 67 08/28/2015 [facility] Temperature Oral (F) 98.6 F 08/21/2015 [facility] Heart Rate 78 08/21/2015 [facility] Respitory Rate 18 08/21/2015 [facility] Systolic (mm Hg) 106 08/21/2015 [facility] Diastolic (mm Hg) 68 08/21/2015 [facility] Systolic (mm Hg) 98 08/12/2015 [facility] Diastolic (mm Hg) 64 08/12/2015 [facility] Respitory Rate 18 08/12/2015 [facility] Heart Rate 62 08/12/2015 [facility] Temperature Oral (F) 98.4 F 08/12/2015 [facility] Height 160.02 cm 07/30/2015 [facility] Weight 76.364 07/30/2015 [facility] Height 160.02 cm 07/30/2015 [facility] BMI Calculated 29.82 07/30/2015 [facility] Height 160.02 cm 07/24/2015 [facility] BMI Calculated 29.82 07/24/2015 [facility] Weight 76.364 07/24/2015 [facility] Encounters Location Location Details Encounter Type Encounter Number Reason For Visit Attending Provider ADM Date DC Date Status Source [facility] OP Recurring [id number] Juan Pablo Ochoa 07/31/2015 08/30/2015 [facility] Outpatient [id number] Zack Cortez 03/07/2017 03/08/2017 [facility] Outpatient [id number] Leeanne Cruz 03/28/2018 03/29/2018 [facility] Outpatient [id number] Leeanne Cruz 04/18/2018 04/19/2018 [facility] Outpatient [id number] Leeanne Cruz 04/26/2018 04/27/2018 [facility] Observation [id number] Loretta Arangogent 08/21/2018 08/22/2018 [facility] NURSE NAVIGATOR [id number] 08/23/2018 01/21/2019 [facility] Outpatient [id number] Non Physician 10/25/2018 10/26/2018 [facility] Procedures Procedure Code Date Perfomer Comments Source section [id number] [facility] Gastric bypass [id number] [facility] Vaginal excision<sup>1</sup> [id number] cyst removal plus skin tag [facility] Assessment and Plan Assessment and Plan Date Source Extracted from:Title: Clinical Document Author: Gema Haas MD Date: 08/22/18 DISCHARGE SUMMARY ADMISSION DATE: 08/21/18 DISCHARGE DATE: 08/22/18 ADMISSION DIAGNOSIS: Atypical endometrial hyperplasia DISCHARGE DIAGNOSIS: Atypical endometrial hyperplasia PROCEDURES: Robotic hysterectomy/BSO/B sentinel LND/cysto HOSPITAL COURSE: Ms. Calloway is a 43 y/o female that presented for surgery for atypical endometrial hyperplasia. She underwent a robotic hysterectomy/BSO/B sentinel LND/cysto on 08/21/18. EBL 150 cc. Her preop Hgb 14.3 and post op was 11.6, likely with hemoconcentrated hgb preop secondary to patient being asymptomatic and stable vitals. On the day of discharge, patient was tolerating po diet, voiding, passing flatus, pain well controlled, and stable vital signs. RESTRICTIONS: Nothing in the vagina x 6 wks (no douching, tampons, or intercourse), no heavy lifting > 10 lbs x 6 wks, no exercising x 6 wks, and no driving x 2 wks or while on narcotics. CONDITION ON DISCHARGE: Stable DISCHARGE MEDICATIONS: Tylenol 1000 mg q 8 hrs Motrin 600 mg q 6 hrs Tramadol 50 mg q 4 hr prn pain Gabapentin 300 mg q 8 hrs FOLLOW-UP: Follow up with Dr. French in 2 weeks for a post op visit. Extracted from:Title: Clinical Document Author: Gema Haas MD Date: 08/22/18 GYNECOLOGIC ONCOLOGY PROGRESS NOTE S: Patient states she is doing well this AM. She tolerated some broth last night. She has ambulated and the kumari has been removed this AM. Pain well controlled. Denies QUIROS, chest pain, SOB, N/V, abdominal pain, constipation, diarrhea, vaginal bleeding, or fever. O: Vitals Tmp(F) Tmp(C) Ttype BP MAP Pulse RR SpO2 FIO2 ETCO2 08/22 08:40 ---- ---- ---- ----- --- --- 18 99 21% --- 08/22 07:50 98.2 36.78 oral 95/63 --- 66 14 --- --- --- 08/21 22:54 98.7 37.06 oral 99/62 --- 72 16 --- --- --- 08/21 21:43 ---- ---- ---- ----- --- --- 16 95 21% --- 08/21 17:05 97.4 36.33 scan ----- --- --- -- --- --- --- 24 Hr Tmax: 98.7F (37.06c) at 08/21 22:54 Vital Signs are the last 5 in the past 48 hours. 24 Hr Tmin: 97.4F (36.33c) at 08/21 17:05 Weights are the last 5 in 60 days, plus initial. Date Wt(kg) Wt(lb) Ht(cm) Ht(in) Method BMI 08/07 (initial) 78.27 172.20 Measured 30.6 08/07 160.02 63.00 Stated I&O Record In Out Bal 08/22 24hr Tot 375 200 175 08/21 24hr Tot 1601 2235 -634 GEN: NAD, sitting in chair Neck: no masses CV: RRR LUNG: CTA B ABD: soft, slightly tympanic, nontender, incisions intact/dry/nonerythematous Lymph: no enlarged nodes appreciated EXT:no edema 24hr Labs 08/22 0400 Sodium Lvl 143 Potassium Lvl 4.2 Chloride Lvl 110 H CO2 26 AGAP 11.2 Glucose Lvl 119 H Creatinine Lvl 0.63 BUN 9 B/C Ratio 14 Total Protein 5.8 L Albumin Lvl 2.9 L Globulin 2.9 A/G Ratio 1.0 Calcium Lvl 8.3 L ALT 18 AST 22 Alk Phos 77 Bili Total 0.5 eGFR 109 Phosphorus 4.0 Magnesium Lvl 2.2 WBC 7.0 RBC 3.86 L Hgb 11.6 L Hct 35.3 L MCV 91.4 MCH 30.1 MCHC 32.9 RDW 14.3 Platelet 201 MPV 8.0 Segs 72.7 Monocytes 9.1 Lymphocytes 17.9 L Eosinophils 0.1 Basophils 0.2 Neutrophils # 5.1 Lymphocytes # 1.3 Monocytes # 0.6 A/P: Ms. Calloway is a 43 y/o female s/p robotic hyst/BSO/B sentinel LND/cysto for atypical endometrial hyperplasia, doing well POD #1. 1. Post Op - Kumari removed - Pain well controlled - Ambulating - Advance diet to regular - Pathology pending - If patient voids and tolerates regular diet, she will be able to go home today - Hgb at 11.6<--14.3. EBL 150 cc. Likely hemoconcentration preop. Asymptomatic. Gema Parra MD 08/22/2018 [facility] Plan of Care No Data Provided for This Section Social History Social History Date Source Social History TypeResponse Substance Abuse Use: Past. Alcohol Current, Type Wine. Frequency: 1-2 times per month. Smoking Status Never smoker; Exposure to Tobacco Smoke None; Cigarette Smoking Last 365 Days No; Reg Smoking Cessation Counseling No entered on: 08/21/18 08/07/2018 [facility] Social History TypeResponse Substance Abuse Use: Past. Alcohol Current, Type Wine. Frequency: 1-2 times per month. Smoking Status Never smoker; Exposure to Tobacco Smoke None; Cigarette Smoking Last 365 Days No; Reg Smoking Cessation Counseling No entered on: 08/21/18 08/07/2018 [facility] Family History No Data Provided for This Section Advance Directives No Data Provided for This Section Functional Status No Data Provided for This Section
--- OUTSIDE RECORDS SUMMARY | 2019-03-15 06:12 | XMS REPORT | Summary of Care ---
Author Author NORMA Mcguire, CORNELL Organization Unknown Address [facility] Phone Unavailable Care Team Providers Care Integration Director Name Role Phone CORNELL FRENCH M.D. Unavailable Unavailable TORITO BLANCAS Unavailable Unavailable NORMA PATEL NVCORNELL Unavailable Unavailable Unavailable Unavailable Functional Status Name Dates Details Functional status health issues are not documented Status: Name Dates Details Cognitive status health issues are not documented Status: Problems Name Dates Details Complex endometrial hyperplasia (621.32, N85.01) Status: Active Anemia (285.9, D64.9) Status: Active BECKY (stress urinary incontinence, female) (625.6, N39.3) Status: Active Atypical endometrial hyperplasia (621.33, N85.02) Status: Active Menopausal sweats (627.2, N95.1) Status: Active Medications Name Dates Details Vitamin B-12 2500 MCG Sublingual Tablet Sublingual * Start : 06-Jun-2018 Active Iron 325 (65 Fe) MG Oral Tablet * Refills: 0 * Start : 06-Jun-2018 Active Gabapentin 300 MG Oral Capsule TAKE 1 CAPSULE 3 TIMES DAILY * Quantity: 90 Refills: 2 TORITO BLANCAS * Start : 26-Sep-2018 Active Allergies and Adverse Reactions Name Dates Details No Known Allergies (Allergy) Status: Active Procedures Procedure Dates Details History of Gastric bypass surgery Completed History of section Completed History of Dilation And Curettage Completed History of Total hysterectomy with removal of both tubes and ovaries Completed Immunization Name Dates Details Immunizations not documented Family History Name Dates Details Family history of malignant neoplasm (V16.9, Z80.9) Status: Active Name Dates Details Family history of hypertension (V17.49, Z82.49) Status: Active Name Dates Details Family history of hypertension (V17.49, Z82.49) Status: Active Social History Name Dates Details - Status: Name Dates Details Never smoker Vital Signs Date Test Result Details [id number] BP Systolic 122 mm[Hg] Status: Comments: Location: RUE; Position: Sitting BP Diastolic 80 mm[Hg] Status: Comments: Location: RUE; Position: Sitting Height 158 cm Status: Weight 78 kg Status: Body Mass Index Calculated 31.24 kg/m2 Status: Body Surface Area Calculated 1.8 m2 Status: Temperature 98.5 f Status: Comments: Method: Oral Heart Rate 59 /min Status: Respiration Rate 18 /min Status: [id number] BP Systolic 118 mm[Hg] Status: Comments: Location: RUE; Position: Sitting BP Diastolic 78 mm[Hg] Status: Comments: Location: RUE; Position: Sitting Height 158 cm Status: Weight 77.28 kg Status: Body Mass Index Calculated 30.96 kg/m2 Status: Body Surface Area Calculated 1.79 m2 Status: Temperature 98.4 f Status: Comments: Method: Oral Heart Rate 63 /min Status: Respiration Rate 17 /min Status: O2 SAT 100 % Status: Comments: Source: Physical Findings 0 Status: Comments: Alcohol Screen - How many times in the past yr have you had 5 (for M) or 4 (for F) or 4 (for all > 65yrs) or more drinks in a day? Results Date Description Value Details Results not documented Plan of Care Name Dates Details Planned Observations Planned Goals not documented Interventions Provided Medication Changes* Gabapentin 300 MG Oral Capsule - Start Discussion/Summary* 43 year old female with diagnosed complex endometrial hyperplasia in a polyp and possibly in endometrium initially referred to us by Dr. Cruz; now s/p RAVH, BSO, bilateral sentinel lymph node dissection and cystoscopy on 08/21/18 here for 6 week post op visit * 1. Complex endometrial hyperplasia: * -Pt is now 6 weeks post-op, s/p robotic assisted total laparoscopic hysterectomy, bilateral salpingo-oophorectomy, bilateral sentinel lymph node dissection and cystoscopy on 08/21/2018. * -Final pathology revealed no evidence of malignancy, presence of endometriosis, and presence of adenomyosis, residual focal hyperplasia. Discussed with pt at last visit. * -Pt continues to recover well with no major complications * -All laparoscopic surgical incision sites are well-healed, dry, and intact. * -1 suture present at vaginal cuff. Cuff intact both visually and on bimanual exam * -Vaginal spotting has resolved * -Pt cleared to participate in lifting/pushing/pulling > 5-10 lbs, soaking in bathtub/pool, and vaginal intercourse * 2. Menopausal symptoms * -Continue Jo root, fish oil, and fiber supplementation * -Start Gabapentin 300 mg 1-2 tabs qhs (or TID prn) for night sweats * RTC for WWE in 1 year with our service or OBGYN or prn. * Discussed above with patient Patient seen and discussed with Dr. French . Questions answered. Instructions Name Dates Details Instructions not documented Encounters Appointment; CORNELL FRENCH M.D. Encounter Diagnosis: Problem not documented On: 06-Jun-2018 9:00 Appointment; CORNELL FRENCH M.D. Encounter Diagnosis: Problem not documented On: 21-Aug-2018 13:15 Appointment; [employer], PROVIDER Encounter Diagnosis: Problem not documented On: 05-Sep-2018 9:20 Appointment; CORNELL FRENCH M.D. Encounter Diagnosis: Problem not documented On: 26-Sep-2018 10:20
--- OUTSIDE RECORDS SUMMARY | 2019-03-15 06:12 | XMS REPORT | Summary of Care ---
Author Author [facility] Organization [facility] Address Unknown Phone Unavailable Encounter MARIBEL Torres(ROMEO) [id number] Date(s): 08/21/18 - 08/22/18 [facility] [address] [place] [address]- Discharge Disposition: Home or Self Care Attending Physician: Loretta French MD Admitting Physician: Loretta French MD Referring Physician: Loretta French MD Vital Signs 1 2 3 Most recent to oldest [Reference Range]: 160.02 cm (08/07/18 10:30 AM) Height 98.3 DegF (08/22/18 3:50 PM) 98.2 DegF (08/22/18 7:50 AM) 98.7 DegF (08/21/18 10:54 PM) Temperature Oral [96.4-99.1 DegF] 90/56 mmHg (08/22/18 3:50 PM) 95/63 mmHg (08/22/18 7:50 AM) 99/62 mmHg (08/21/18 10:54 PM) Blood Pressure [90-140/60-90 mmHg] 16 BRMIN (08/22/18 3:50 PM) 18 BRMIN (08/22/18 8:40 AM) 14 BRMIN (08/22/18 7:50 AM) Respiratory Rate [14-20 BRMIN] 82 bpm (08/22/18 3:50 PM) 66 bpm (08/22/18 7:50 AM) 72 bpm (08/21/18 10:54 PM) Peripheral Pulse Rate [60-100 bpm] 78.273 kg (08/07/18 10:30 AM) Weight 30.57 m2 (08/07/18 10:30 AM) Body Mass Index Problem List Condition Effective Dates Status Health Status Informant Atypical endometrial Active hyperplasia(Confirme d) Borderline Resolved diabetes(Confirmed) Cough(Confirmed) Active Iron deficiency Active anemia(Confirmed) Irregular Resolved heartbeat(Confirmed) Arm Active numbness(Confirmed)1 Neck Active tightness(Confirmed) Lumbar herniated Active disc(Confirmed) Varicose veins of Active lower limb(Confirmed) 1right Allergies, Adverse Reactions, Alerts Substance Reaction Severity Status NKDA Active Medications acetaminophen 1,000 mg, 2 tab, Route: PO, Drug form: TAB, Q6H, Dosing Weight 78.273, kg, Start date: 08/21/18 18:00:00 [employer], Duration: 30 day, Stop date: 09/20/18 12:00:00 CDT Notes: Max acetaminophen 4000 mg/day (4 gm/day). (Same as: Tylenol Extra Streng th) Start Date: 08/21/18 Stop Date: 08/22/18 Status: Discontinued acetaminophen (ANES) Route: IV, Drug form: INJ, ONCE, Stop date: 08/21/18 10:19:00 [employer] Start Date: 08/21/18 Stop Date: 08/21/18 Status: Completed acetaminophen 500 mg oral tablet 1,000 mg=2 tab, PO, Q8H, X 14 day, # 84 tab, 0 Refill(s) Start Date: 08/22/18 Stop Date: 09/05/18 Status: Ordered ANES acetaminophen 1,000 mg, Route: PO, Drug form: TAB, ONCE, Dosing Weight 78.273, kg, PRN Pain Sc ore 1-3, Start date: 08/21/18 13:12:00 [employer] Start Date: 08/21/18 Stop Date: 08/22/18 Status: Discontinued ANES diphenhydrAMINE 12.5 mg, Route: IVP, Drug form: INJ, Q6H, Dosing Weight 78.273, kg, PRN Itching, Start date: 08/21/18 13:12:00 [employer], Duration: 30 day, Stop date: 09/20/18 13:11: 00 CDT Start Date: 08/21/18 Stop Date: 08/22/18 Status: Discontinued ANES fentaNYL 50 microgram, Route: IVP, Q5Min, Dosing Weight 78.273, kg, PRN Pain Score 7-10, Priority: Routine, Start date: 08/21/18 13:12:00 [employer], Duration: 2 doses or times , Stop date: Limited # of times Start Date: 08/21/18 Stop Date: 08/22/18 Status: Discontinued ANES flumazenil 0.2 mg, Route: IVP, PRN, Dosing Weight 78.273, kg, PRN Benzodiazepine Reversal, Initial dose, Start date: 08/21/18 13:12:00 [employer], Duration: 30 day, Stop date: 14:11:00 CDT Start Date: 08/21/18 Stop Date: 08/22/18 Status: Discontinued ANES hydrALAZINE 10 mg, Route: IVP, Q20Min, Dosing Weight 78.273, kg, PRN Elevated BP, Start date : 08/21/18 13:12:00 [employer], Duration: 2 doses or times, Stop date: Limited # of ivory es Start Date: 08/21/18 Stop Date: 08/22/18 Status: Discontinued ANES HYDROmorphone 0.5 mg, Route: IVP, Q5Min, Dosing Weight 78.273, kg, PRN Pain Score 7-10, Start date: 08/21/18 13:12:00 [employer], Duration: 4 doses or times, Stop date: Limited # of times Start Date: 08/21/18 Stop Date: 08/22/18 Status: Discontinued ANES labetalol 10 mg, Route: IVP, Q5Min, Dosing Weight 78.273, kg, PRN Elevated BP, Start date: 08/21/18 13:12:00 [employer], Duration: 5 doses or times, Stop date: Limited # of times Start Date: 08/21/18 Stop Date: 08/22/18 Status: Discontinued ANES meperidine 12.5 mg, Route: IVP, Q30Min, Dosing Weight 78.273, kg, PRN Other -See Comment, F or shivering, Start date: 08/21/18 13:12:00 [employer], Duration: 2 doses or times, Sto p date: Limited # of times Start Date: 08/21/18 Stop Date: 08/22/18 Status: Discontinued ANES naloxone 0.4 mg, Route: IVP, Q2MIN, Dosing Weight 78.273, kg, PRN Narcotic Reversal, Star t date: 08/21/18 13:12:00 [employer], Duration: 8 doses or times, Stop date: Limited # of times Start Date: 08/21/18 Stop Date: 08/22/18 Status: Discontinued ANES ondansetron 4 mg, Route: IVP, ONCE, Dosing Weight 78.273, kg, PRN Nausea & Vomiting, Start date: 08/21/18 13:12:00 [employer] Start Date: 08/21/18 Stop Date: 08/22/18 Status: Discontinued ANES oxyCODONE 10 mg, Route: PO, Drug form: TAB, Q4H, Dosing Weight 78.273, kg, PRN Pain Score 7-10, Start date: 08/21/18 13:12:00 [employer], Duration: 30 day, Stop date: 09/20/18 1 3:11:00 CDT Start Date: 08/21/18 Stop Date: 08/22/18 Status: Discontinued ANES oxyCODONE 5 mg, Route: PO, Drug form: TAB, Q4H, Dosing Weight 78.273, kg, PRN Pain Score 4 -6, Start date: 08/21/18 13:12:00 [employer], Duration: 30 day, Stop date: 09/20/18 13: 11:00 CDT Start Date: 08/21/18 Stop Date: 08/22/18 Status: Discontinued ANES promethazine 6.25 mg, Route: IVPB, ONCE, Dosing Weight 78.273, kg, PRN Nausea & Vomiting, Start date: 08/21/18 13:12:00 [employer] Start Date: 08/21/18 Stop Date: 08/21/18 Status: Completed azithromycin 500 mg oral tablet 500 mg=1 tab, PO, Daily, # 3 tab, 0 Refill(s) Start Date: 08/07/18 Stop Date: 08/22/18 Status: Discontinued ceFAZolin (ANES) Route: IV, Drug form: INJ, ONCE, Stop date: 08/21/18 8:54:00 [employer] Start Date: 08/21/18 Stop Date: 08/21/18 Status: Completed CeleBREX 400 mg, Route: PO, Drug form: CAP, ONCE, Dosing Weight 78.273, kg, Start date: 0 08/21/18 6:51:00 [employer], Stop date: 08/21/18 6:51:00 [employer] Start Date: 08/21/18 Stop Date: 08/21/18 Status: Completed CeleBREX 200 mg, 1 cap, Route: PO, Drug form: CAP, BID, Dosing Weight 78.273, kg, Start d ate: 08/21/18 17:00:00 [employer], Duration: 30 day, Stop date: 09/20/18 9:00:00 CDT Notes: NSAID. Please check indication. Not for seizure. (Same As: CeleBREX) Start Date: 08/21/18 Stop Date: 08/22/18 Status: Discontinued dexamethasone (ANES) Route: IV, Drug form: INJ, ONCE, Stop date: 08/21/18 9:49:00 [employer] Start Date: 08/21/18 Stop Date: 08/21/18 Status: Completed dexmedetomidine (ANES) 200 microgram Route: IV, Drug form: INJ, Start date: 08/21/18 8:00:00 [employer], Stop date: 08/21/18 9:00:00 [employer] Start Date: 08/21/18 Stop Date: 08/21/18 Status: Completed Dextrose 5% in Lactated Ringers IV 1,000 mL 1,000 mL, Rate: 125 ml/hr, Infuse over: 8 hr, Route: IV, Dosing Weight 78.273 kg , Total Volume: 1,000, Start date: 08/21/18 12:28:00 [employer], Duration: 30 day, Stop date: 09/20/18 12:27:00 CDT, 1.89, m2 Start Date: 08/21/18 Stop Date: 08/22/18 Status: Discontinued enoxaparin 40 mg, 0.4 mL, Route: SUB-Q, Drug form: INJ, [id number], Dosing Weight 78.273, kg, Start date: 08/22/18 9:30:00 [employer], Stop date: 09/20/18 9:30:00 CDT Notes: (Same as: Lovenox) Start Date: 08/22/18 Stop Date: 08/22/18 Status: Discontinued ePHEDrine (ANES) Route: IV, Drug form: INJ, ONCE, Stop date: 08/21/18 9:14:00 [employer] Start Date: 08/21/18 Stop Date: 08/21/18 Status: Completed Exparel 20 mL, Route: InFILtration(local), Drug Form: INJ, Dosing Weight 78.273, kg, ONC ALL, For Hemorrhoidectomy, Start date: 08/20/18 20:00:00 [employer], Duration: 30 day, Stop date: 09/19/18 20:59:00 CDT Notes: (Same as: Exparel) NOT FOR IV use Postoperative analgesia: Infi ltration (local): Dose is based on surgical site and volume required to cover th e area (in general, the maximum total dose is 266 mg).Bunionectomy: 7 mL into th e tissues surrounding the osteotomy and 1 mL into the subcutaneous tissue of the surgical site (total dose=8 mL [106 mg])Hemorrhoidectomy: 30 mL (20 mL vial dil uted with 10 mL NS) divided and administered as 6 injections of 5 mL each (total dose=30 mL [266 mg]) Start Date: 08/20/18 Stop Date: 08/22/18 Status: Discontinued ferrous sulfate 160 mg oral tablet, extended release 160 mg=1 tab, PO, Daily, # 30 tab, 0 Refill(s) Start Date: 08/07/18 Stop Date: 08/22/18 Status: Discontinued gabapentin 300 mg, 1 cap, Route: PO, Drug form: CAP, Q8H, Dosing Weight 78.273, kg, (CrCl > 60 ml/min), Start date: 08/21/18 16:00:00 [employer], Duration: 30 day, Stop date: 8:00:00 CDT Notes: (Same as: Neurontin) Start Date: 08/21/18 Stop Date: 08/22/18 Status: Discontinued gabapentin 300 mg oral capsule 300 mg, Route: PO, Drug form: CAP, ONCE, Dosing Weight 78.273, kg, Start date: 0 08/21/18 6:51:00 [employer], Stop date: 08/21/18 6:51:00 [employer] Start Date: 08/21/18 Stop Date: 08/21/18 Status: Completed gabapentin 300 mg oral capsule 300 mg=1 cap, PO, Q8H, # 42 cap, 0 Refill(s) Start Date: 08/22/18 Stop Date: 09/05/18 Status: Ordered glycopyrrolate (ANES) Route: IV, Drug form: INJ, ONCE, Stop date: 08/21/18 9:19:00 [employer] Start Date: 08/21/18 Stop Date: 08/21/18 Status: Completed IC-Green 25 mg, Route: InFILtration(local), Drug form: PDR/INJ, ONCE, Dosing Weight 78.27 3, kg, Start date: 08/21/18 6:47:00 [employer], Stop date: 08/21/18 6:47:00 [employer] Notes: (Same as: Cardio Green) Start Date: 08/21/18 Stop Date: 08/21/18 Status: Completed ketAMINE (ANES) Route: IV, Drug form: INJ, ONCE, Stop date: 08/21/18 9:14:00 [employer] Start Date: 08/21/18 Stop Date: 08/21/18 Status: Completed Lactated Ringers Injection IV (ANES) 1000 mL Route: IV, Total Volume: 1,000, Start date: 08/21/18 7:48:00 [employer], Stop date: 8:48:00 [employer] Start Date: 08/21/18 Stop Date: 08/21/18 Status: Completed Lactated Ringers Injection IV 1000 mL 1,000 mL, Rate: 25 ml/hr, Infuse over: 40 hr, Route: IV, Dosing Weight 78.273 kg , Total Volume: 1,000, Start date: 08/21/18 7:56:00 [employer], Duration: 30 day, Stop date: 09/20/18 7:55:00 CDT, 1.89, m2 Start Date: 08/21/18 Stop Date: 08/21/18 Status: Discontinued lidocaine (ANES) Route: IV, Drug form: INJ, ONCE, Stop date: 08/21/18 9:44:00 [employer] Start Date: 08/21/18 Stop Date: 08/21/18 Status: Completed magnesium oxide 400 mg, 1 tab, Route: PO, Drug form: TAB, BID, Dosing Weight 78.273, kg, Start d ate: 08/21/18 17:00:00 [employer], Duration: 30 day, Stop date: 09/20/18 9:00:00 CDT Notes: (Same as: Mag-Ox 400)Magnesium oxide [id number] elemental magnesiumDose= ____mg magnesium oxide (___mg elemental magnesium) Start Date: 08/21/18 Stop Date: 08/22/18 Status: Discontinued metroNIDAZOLE (ANES) Route: IV, Drug form: INJ, ONCE, Stop date: 08/21/18 8:54:00 [employer] Start Date: 08/21/18 Stop Date: 08/21/18 Status: Completed midazolam (ANES) Route: IV, Drug form: SOLN, ONCE, Stop date: 08/21/18 9:19:00 [employer] Start Date: 08/21/18 Stop Date: 08/21/18 Status: Completed Motrin 600 mg oral tablet 600 mg=1 tab, PO, Q6H, PRN Pain, take with food, # 30 tab, 0 Refill(s) Start Date: 08/22/18 Stop Date: 09/19/18 Status: Ordered ondansetron (ANES) Route: IV, Drug form: INJ, ONCE, Stop date: 08/21/18 9:49:00 [employer] Start Date: 08/21/18 Stop Date: 08/21/18 Status: Completed One-A-Day Women oral tablet 1 tab, PO, Daily, # 30 tab, 0 Refill(s) Start Date: 08/07/18 Status: Ordered Phenergan + Sodium Chloride 0.9% IV 50 mL 12.5 mg, 0.5 mL, Route: IVPB, Q4H, Dosing Weight 78.273, kg, PRN Nausea & Vomiting, Start date: 08/21/18 12:28:00 [employer], Duration: 30 day, Stop date: 09/20 12:27:00 CDT Notes: Do not give IV push. (Same as: Phenergan) Start Date: 08/21/18 Stop Date: 08/22/18 Status: Discontinued propofol (ANES) Route: IV, Drug form: INJ, ONCE, Stop date: 08/21/18 9:44:00 [employer] Start Date: 08/21/18 Stop Date: 08/21/18 Status: Completed Reglan 10 mg, 2 mL, Route: IVP, Drug form: INJ, Q6H, Dosing Weight 78.273, kg, PRN Naus ea & Vomiting, Start date: 08/21/18 12:28:00 [employer], Duration: 30 day, Stop date: 09/20/18 12:27:00 CDT Notes: (Same as: Reglan) Start Date: 08/21/18 Stop Date: 08/22/18 Status: Discontinued Rocephin 0 Refill(s) Start Date: 08/07/18 Stop Date: 08/22/18 Status: Discontinued rocuronium (ANES) Route: IV, Drug form: INJ, ONCE, Stop date: 08/21/18 8:59:00 [employer] Start Date: 08/21/18 Stop Date: 08/21/18 Status: Completed scopolamine 1.5 mg transdermal film 1 patch, Route: TOP, Drug Form: ERFILM, Dosing Weight 78.273, kg, PRE OP, Start date: 08/21/18 7:00:00 [employer], Duration: 30 day, Stop date: 09/20/18 7:59:00 CDT Start Date: 08/21/18 Stop Date: 08/21/18 Status: Completed senna 17.2 mg, 2 tab, Route: PO, Drug Form: TAB, Dosing Weight 78.273, kg, Daily, Star t date: 08/22/18 9:00:00 [employer], Duration: 30 day, Stop date: 09/20/18 9:00:00 CDT Notes: (Same as: Senokot) Start Date: 08/22/18 Stop Date: 08/22/18 Status: Discontinued simethicone 80 mg, 1 tab, Route: CHEW, Drug form: CHEWTAB, QID, Dosing Weight 78.273, kg, WA N Gas, Start date: 08/21/18 12:28:00 [employer], Duration: 30 day, Stop date: 09/20/18 12:27:00 CDT Notes: (Same as: Mylicon) Start Date: 08/21/18 Stop Date: 08/22/18 Status: Discontinued Sodium Chloride 0.9% IV (ANES) 1000 mL Route: IV, Total Volume: 1,000, Start date: 08/21/18 8:00:00 [employer], Stop date: 9:00:00 [employer] Start Date: 08/21/18 Stop Date: 08/21/18 Status: Completed sugammadex (ANES) Route: IV, Drug form: SOLN, ONCE, Stop date: 08/21/18 12:38:00 [employer] Start Date: 08/21/18 Stop Date: 08/21/18 Status: Completed tramadol 50 mg, 1 tab, Route: PO, Drug form: TAB, Q4H, Dosing Weight 78.273, kg, PRN Pain Score 4-6, Start date: 08/21/18 12:28:00 [employer], Duration: 30 day, Stop date: 08/25 02/11 12:27:00 CDT Notes: Not to exceed 400mg/day. (Same As: Ultram) Start Date: 08/21/18 Stop Date: 08/22/18 Status: Discontinued tramadol 50 mg oral tablet 50 mg=1 tab, PO, Q4H, PRN Pain Score 4-6, # 30 tab, 0 Refill(s) Start Date: 08/22/18 Stop Date: 09/19/18 Status: Ordered Vitamin B12 1000 mcg oral tablet 1,000 microgram=1 tab, PO, Daily, # 30 tab, 0 Refill(s) Start Date: 08/07/18 Status: Ordered Zofran 4 mg, 1 tab, Route: PO, Drug form: TAB, Q8H, Dosing Weight 78.273, kg, PRN Nause a, Start date: 08/21/18 12:28:00 [employer], Duration: 30 day, Stop date: 09/20/18 12:2 7:00 CDT Notes: (Same as: Zofran) Start Date: 08/21/18 Stop Date: 08/22/18 Status: Discontinued Results BLOOD BANK RESULTS Most recent to 1 2 oldest [Reference Range]: ABO/Rh O POS O POS *Unknown* *Unknown* (08/21/18 6:44 AM) (08/07/18 10:50 AM) Antibody Scrn Negative Negative (08/21/18 6:44 AM) (08/07/18 10:50 AM) ELECTROLYTES Most recent to 1 2 oldest [Reference Range]: Sodium Lvl [135-145 143 mEq/L 143 mEq/L mEq/L] (08/22/18 4:00 AM) (08/07/18 10:50 AM) Potassium Lvl 4.2 mEq/L 3.9 mEq/L [3.5-5.1 mEq/L] (08/22/18 4:00 AM) (08/07/18 10:50 AM) Chloride Lvl [95-109 110 mEq/L 107 mEq/L mEq/L] *HI* (08/07/18 10:50 AM) (08/22/18 4:00 AM) CO2 [24-32 mEq/L] 26 mEq/L 28 mEq/L (08/22/18 4:00 AM) (08/07/18 10:50 AM) AGAP [10.0-20.0 11.2 mEq/L 11.9 mEq/L mEq/L] (08/22/18 4:00 AM) (08/07/18 10:50 AM) CHEM PANEL Most recent to 1 2 oldest [Reference Range]: Creatinine Lvl 0.63 mg/dL 0.67 mg/dL [0.50-1.40 mg/dL] (08/22/18 4:00 AM) (08/07/18 10:50 AM) eGFR 109 mL/min/1.73m2 1 106 mL/min/1.73m2 2 *NA* *NA* (08/22/18 4:00 AM) (08/07/18 10:50 AM) BUN [7-22 mg/dL] 9 mg/dL 15 mg/dL (08/22/18 4:00 AM) (08/07/18 10:50 AM) B/C Ratio [6-25] 14 22 (08/22/18 4:00 AM) (08/07/18 10:50 AM) Glucose Lvl [70-99 119 mg/dL 91 mg/dL mg/dL] *HI* (08/07/18 10:50 AM) (08/22/18 4:00 AM) Total Protein 5.8 g/dL 7.6 g/dL [6.4-8.4 g/dL] *LOW* (08/07/18 10:50 AM) (08/22/18 4:00 AM) Albumin Lvl [3.5-5.0 2.9 g/dL 3.9 g/dL g/dL] *LOW* (08/07/18 10:50 AM) (08/22/18 4:00 AM) Globulin [2.7-4.2 2.9 g/dL 3.7 g/dL g/dL] (08/22/18 4:00 AM) (08/07/18 10:50 AM) A/G Ratio [0.7-1.6] 1.0 1.1 (08/22/18 4:00 AM) (08/07/18 10:50 AM) Calcium Lvl 8.3 mg/dL 9.4 mg/dL [8.5-10.5 mg/dL] *LOW* (08/07/18 10:50 AM) (08/22/18 4:00 AM) Phosphorus [2.5-4.5 4.0 mg/dL mg/dL] (08/22/18 4:00 AM) Magnesium Lvl 2.2 mg/dL 2.2 mg/dL [1.8-2.4 mg/dL] (08/22/18 4:00 AM) (08/07/18 10:50 AM) ALT [0-65 unit/L] 18 unit/L 18 unit/L (08/22/18 4:00 AM) (08/07/18 10:50 AM) AST [0-37 unit/L] 22 unit/L 19 unit/L (08/22/18 4:00 AM) (08/07/18 10:50 AM) Alk Phos [39-136 77 unit/L 123 unit/L unit/L] (08/22/18 4:00 AM) (08/07/18 10:50 AM) Bili Total [0.2-1.3 0.5 mg/dL 0.3 mg/dL mg/dL] (08/22/18 4:00 AM) (08/07/18 10:50 AM) 1Result Comment: The eGFR is calculated using the [...] from the National Kidney Disease Education Program ( NKDEP) which additionally recommends that when the eGFR is used in patients with extremes of body mass index for purposes of drug dosing, the eGFR should be mul tiplied by the estimated BMI. 2Result Comment: The eGFR is calculated using the [...] from the National Kidney Disease Education Program ( NKDEP) which additionally recommends that when the eGFR is used in patients with extremes of body mass index for purposes of drug dosing, the eGFR should be mul tiplied by the estimated BMI. URINE CHEM Most recent to 1 2 oldest [Reference Range]: U Preg [Negative] Negative (08/21/18 6:26 AM) HEMATOLOGY Most recent to 1 2 oldest [Reference Range]: WBC [3.7-10.4 K/CMM] 7.0 K/CMM 6.8 K/CMM (08/22/18 4:00 AM) (08/07/18 10:50 AM) RBC [4.20-5.40 3.86 M/CMM 4.79 M/CMM M/CMM] *LOW* (08/07/18 10:50 AM) (08/22/18 4:00 AM) Hgb [12.0-16.0 g/dL] 11.6 g/dL 14.3 g/dL *LOW* (08/07/18 10:50 AM) (08/22/18 4:00 AM) Hct [36.0-48.0 %] 35.3 % 42.6 % *LOW* (08/07/18 10:50 AM) (08/22/18 4:00 AM) MCV [80.0-98.0 fL] 91.4 fL 89.0 fL (08/22/18 4:00 AM) (08/07/18 10:50 AM) MCH [27.0-31.0 pg] 30.1 pg 29.8 pg (08/22/18 4:00 AM) (08/07/18 10:50 AM) MCHC [32.0-36.0 32.9 g/dL 33.5 g/dL g/dL] (08/22/18 4:00 AM) (08/07/18 10:50 AM) RDW [11.5-14.5 %] 14.3 % 13.7 % (08/22/18 4:00 AM) (08/07/18 10:50 AM) MPV [7.4-10.4 fL] 8.0 fL 8.0 fL (08/22/18 4:00 AM) (08/07/18 10:50 AM) Platelet [133-450 201 K/CMM 249 K/CMM K/CMM] (08/22/18 4:00 AM) (08/07/18 10:50 AM) Segs [45.0-75.0 %] 72.7 % 56.5 % (08/22/18 4:00 AM) (08/07/18 10:50 AM) Lymphocytes 17.9 % 30.6 % [20.0-40.0 %] *LOW* (08/07/18 10:50 AM) (08/22/18 4:00 AM) Monocytes [2.0-12.0 9.1 % 7.8 % %] (08/22/18 4:00 AM) (08/07/18 10:50 AM) Eosinophils [0.0-4.0 0.1 % 4.1 % %] (08/22/18 4:00 AM) *HI* (08/07/18 10:50 AM) Basophils [0.0-1.0 0.2 % 1.0 % %] (08/22/18 4:00 AM) (08/07/18 10:50 AM) Neutrophils # 5.1 K/CMM 3.8 K/CMM [1.5-8.1 K/CMM] (08/22/18 4:00 AM) (08/07/18 10:50 AM) Lymphocytes # 1.3 K/CMM 2.1 K/CMM [1.0-5.5 K/CMM] (08/22/18 4:00 AM) (08/07/18 10:50 AM) Monocytes # [0.0-0.8 0.6 K/CMM 0.5 K/CMM K/CMM] (08/22/18 4:00 AM) (08/07/18 10:50 AM) Eosinophils # 0.3 K/CMM [0.0-0.5 K/CMM] (08/07/18 10:50 AM) Basophils # [0.0-0.2 0.1 K/CMM K/CMM] (08/07/18 10:50 AM) Immunizations No data available for this section Procedures Procedure Date Related Diagnosis Body Site Status section Completed Gastric bypass Completed Vaginal excision1 Completed 1cyst removal plus skin tag Social History Social History Type Response Substance Abuse Use: Past. Alcohol Current, Type Wine. Frequency: 1-2 times per month. Smoking Status Never smoker; Exposure to Tobacco Smoke None; Cigarette Smoking Last 365 Days No; Reg Smoking Cessation Counseling No entered on: 08/21/18 Assessment and Plan Extracted from: Title: Clinical Document Author: Gema Haas Date: 08/22/18 Adarsh PATEL DISCHARGE SUMMARY ADMISSION DATE: 08/21/18 DISCHARGE DATE: [...] weeks for a post op visit. Extracted from: Title: Clinical Document Author: Gema Haas Date: 08/22/18 Adarsh PATEL GYNECOLOGIC ONCOLOGY PROGRESS NOTE S: Patient states she is doing well this AM. She tolerated some broth last night. She has ambulated and the kumari has been removed this AM. Pain well controlled. Denies QUIROS, chest pain, SOB, N/V, abdominal pain, constipation, diarrhea, vaginal bleeding, or fever. O: VitalsTmp(F)Tmp(C)[id number] 08/22 08:40 1899 21%--- 08/22 07:[id number]/63---6614--------- 08/21 22:5498.737.48nljf91/62---7216--------- 08/21 21:43 1695 21%--- 08/21 17:0597.436.33scan 24 Hr Tmax: 98.7F (37.06c) at 08/21 22:54Vital Signs are the last 5 in the past 48 hours. 24 Hr Tmin: 97.4F (36.33c) at 08/21 17:05Weights are the last 5 in 60 days, plus initial. DateWt(kg)Wt(lb)Ht(cm)Ht(in)MethodBMI 08/07 (initial) 78.27 172.20Measured 30.6 04932.02 63.00Stated I&ORecordInOutBal 07/2723hr Tot 375 200 175 07/2623hr Tot 1601 2235 -634 GEN: NAD, sitting in chair Neck: no masses CV: RRR LUNG: CTA B ABD: soft, slightly tympanic, nontender, incisions intact/dry/nonerythematous Lymph: no enlarged nodes appreciated EXT:no edema 24hr Labs 08/22 0400 Sodium Vjb778 Potassium Lvl4.2 Chloride Nbt357 H CO226 AGAP11.2 Glucose Srz896 H Creatinine Lvl0.63 BUN9 B/C Ratio14 Total Protein5.8 L Albumin Lvl2.9 L Globulin2.9 A/G Ratio1.0 Calcium Lvl8.3 L ALT18 AST22 Alk Phos77 Bili Total0.5 gAFA757 Phosphorus4.0 Magnesium Lvl2.2 WBC7.0 RBC3.86 L Hgb11.6 L Hct35.3 L MCV91.4 MCH30.1 MCHC32.9 RDW14.3 Eroxmncd757 MPV8.0 Segs72.7 Monocytes9.1 Jshmkqnkqwf64.9 L Eosinophils0.1 Basophils0.2 Neutrophils #5.1 Lymphocytes #1.3 Monocytes #0.6 A/P: Ms. Calloway is a 43 y/o [...]
--- OUTSIDE RECORDS SUMMARY | 2019-03-15 06:12 | XMS REPORT | Summary of Care ---
Author Author [facility] Organization [facility] Address Unknown Phone Unavailable Encounter HQ Brian(FIN) [id number] Date(s): 10/25/18 - 10/25/18 [facility] [address] [place] [address]- [phone] Discharge Disposition: Home or Self Care Attending Physician: Leeanne Cruz MD Referring Physician: Physician, Non Associated MD Vital Signs No data available for this section Problem List Condition Effective Dates Status Health Status Informant Atypical endometrial Active hyperplasia(Confirme d) Borderline Resolved diabetes(Confirmed) Cough(Confirmed) Active Iron deficiency Active anemia(Confirmed) Irregular Resolved heartbeat(Confirmed) Arm Active numbness(Confirmed)1 Neck Active tightness(Confirmed) Lumbar herniated Active disc(Confirmed) Varicose veins of Active lower limb(Confirmed) 1right Allergies, Adverse Reactions, Alerts No Known Medication Allergies Medications No data available for this section Results No data available for this section Immunizations No data available for this section [...] No entered on: 08/21/18 Assessment and Plan No data available for this section
--- OUTSIDE RECORDS SUMMARY | 2019-03-15 06:12 | XMS REPORT | Summary of Care ---
Author Author [facility] Organization [facility] Address Unknown Phone Unavailable Encounter HQ Dintr_kennedi(FIN) [id number] Date(s): 03/07/17 - 03/07/17 [facility] [address] [place] [address]- Discharge Disposition: Home or Self Care Attending Physician: Zack Cortez MD Referring Physician: Zack Cortez MD Vital Signs No data available for this section Problem List Condition Effective Dates Status Health Status Informant Borderline Resolved diabetes(Confirmed) Iron deficiency Active anemia(Confirmed) Allergies, Adverse Reactions, Alerts Substance Reaction Severity Status NKDA Active Medications No data available for this section Results No data available for this section Immunizations No data available for this section Procedures Procedure Date Related Diagnosis Body Site Gastric bypass Social History Social History Type Response Smoking Status Never smoker; Exposure to Tobacco Smoke None; Cigarette Smoking Last 365 Days No; Reg Smoking Cessation Counseling No Assessment and Plan No data available for this section
--- OUTSIDE RECORDS SUMMARY | 2019-03-15 06:12 | XMS REPORT ---
Author Author [facility] Address Unknown Phone Unavailable Care Team Providers Care Brick Tester Name Role Phone BRAXTON MART Unavailable Unavailable Problems This patient has no known problems. Allergies, Adverse Reactions, Alerts This patient has no known allergies or adverse reactions. Medications This patient has no known medications. Encounters Start Date/Time End Date/Time Encounter Type Admission Type Attending Clinicians Care Facility Care Department Encounter ID 2018-10-25 07:55:00 2018-10-25 07:55:00 Outpatient [id number] Results Test Description Test Time Test Comments Text Results Atomic Results Result Comments CHEST 2 VIEWS 2019-03-12 13:54:00 [place] [address] Patient Name: KENIA CONTEH MR #: [id number] : 1975 Age/Sex: 43/F Req #: [id number] Adm Physician: Ordered by: BRAXTON MART DPM Report #: [id number] Location: OR Room/Bed: Procedure: [id number] DX/CHEST 2 VIEWS Exam Date: 03/12/19 Exam Time: 1310 REPORT STATUS: Signed Chest, 2 views, 03/12/2019. History: Preop, foot surgery. Comparison: None available. Findings: The cardiomediastinal silhouette and pulmonary vasculature are within normal limits. The lungs are clear without evidence of consolidation or pleural effusion. Degenerative changes are noted in the thoracic spine. There are no acute osseous or soft tissue abnormalities. Impression: No acute cardiopulmonary abnormality. Signed by: Solo Perera on 03/12/2019 1:54 PM Dictated By: SOLO PERERA MD [id number] Transcribed By: DEVIN on 03/12/19 1889 COPY TO: BRAXTON MART DPM
--- OUTSIDE RECORDS SUMMARY | 2019-03-15 06:12 | XMS REPORT | Summary of Care ---
Author Author [facility] Organization [facility] Address Unknown Phone Unavailable Encounter HQ Jaysonr_kennedi(FIN) [id number] Date(s): 08/23/18 - 01/21/19 [facility] [address] [place] [address]- S [phone] Discharge Disposition: NN - Case Closure Vital Signs No data available for this [...]
--- OUTSIDE RECORDS SUMMARY | 2019-03-15 06:12 | XMS REPORT | Summary of Care ---
Author Author [facility] Organization [facility] Address Unknown Phone Unavailable Encounter HQ Diane_kennedi(FIN) [id number] Date(s): 04/18/18 - 04/18/18 [facility] [address] [place] [address]- [phone] Encounter Diagnosis Other specified disorders of breast (Final) - 04/24/18 Discharge Disposition: Home or Self Care Attending Physician: Leeanne Cruz MD Referring Physician: Leeanne Cruz MD Vital Signs No data available for [...]
--- OUTSIDE RECORDS SUMMARY | 2019-03-15 06:12 | XMS REPORT | Summary of Care ---
Author Author [facility] Organization [facility] Address Unknown Phone Unavailable Encounter HQ Brian(ROMEO) [id number] Date(s): 07/31/15 - 08/29/15 [facility] [address] [place] [address]- Discharge Disposition: Home Attending Physician: Juan Pablo Ochoa MD Referring Physician: Juan Pablo Ochoa MD Vital Signs 1 2 3 Most recent to oldest [Reference Range]: 160.02 cm (07/30/15 3:32 PM) 160.02 cm (07/30/15 2:42 PM) 160.02 cm (07/24/15 4:11 PM) Height 98.3 DegF (08/28/15 11:10 AM) 98.6 DegF (08/21/15 11:30 AM) 98.4 DegF (08/12/15 3:07 PM) Temperature Oral [96.4-99.1 DegF] 96/67 mmHg (08/28/15 11:10 AM) 106/68 mmHg (08/21/15 11:30 AM) 98/64 mmHg (08/12/15 3:07 PM) Blood Pressure [90-140/60-90 mmHg] 18 BRMIN (08/28/15 11:10 AM) 18 BRMIN (08/21/15 11:30 AM) 18 BRMIN (08/12/15 3:07 PM) Respiratory Rate [14-20 BRMIN] 78 bpm (08/28/15 11:10 AM) 78 bpm (08/21/15 11:30 AM) 62 bpm (08/12/15 3:07 PM) Peripheral Pulse Rate [60-100 bpm] 76.364 kg (07/30/15 2:42 PM) 76.364 kg (07/24/15 4:11 PM) Weight 29.82 m2 (07/30/15 2:42 PM) 29.82 m2 (07/24/15 4:11 PM) Body Mass Index Problem List Condition Effective Dates Status Health Status Informant Borderline Resolved diabetes(Confirmed) Iron deficiency Active anemia(Confirmed) Allergies, Adverse Reactions, Alerts Substance Reaction Severity Status NKDA Active Medications acetaminophen 500 mg, 1 tab, Route: PO, Drug form: TAB, Q8H, PRN Other -See Comment, Start aditi e: 08/12/15 12:00:00, Duration: 12 hr, Stop date: 08/12/15 23:59:00 Notes: Max acetaminophen 4000 mg/day (4 gm/day). (Same as: Tylenol Extra Streng ) Start Date: 08/12/15 Stop Date: 08/12/15 Status: Completed acetaminophen 500 mg, 1 tab, Route: PO, Drug form: TAB, Q8H, PRN Other -See Comment, Start aditi e: 08/28/15 8:30:00, Duration: 12 hr, Stop date: 08/28/15 20:29:00 Notes: Max acetaminophen 4000 mg/day (4 gm/day). (Same as: Tylenol Extra Streng ) Start Date: 08/28/15 Stop Date: 08/28/15 Status: Completed acetaminophen 500 mg, 1 tab, Route: PO, Drug form: TAB, Q8H, PRN Other -See Comment, Start aditi e: 08/21/15 9:30:00, Duration: 12 hr, Stop date: 08/21/15 21:29:00 Notes: Max acetaminophen 4000 mg/day (4 gm/day). (Same as: Tylenol Extra Streng ) Start Date: 08/21/15 Stop Date: 08/21/15 Status: Completed acetaminophen 500 mg, 1 tab, Route: PO, Drug form: TAB, Q8H, PRN Other -See Comment, Start aditi e: 08/05/15 9:00:00, Duration: 12 hr, Stop date: 08/05/15 20:59:00 Notes: Max acetaminophen 4000 mg/day (4 gm/day). (Same as: Tylenol Extra Streng th) Start Date: 08/05/15 Stop Date: 08/05/15 Status: Completed acetaminophen 500 mg, 1 tab, Route: PO, Drug form: TAB, Q8H, PRN Other -See Comment, Start aditi e: 07/28/15 10:00:00, Duration: 80 hr, Stop date: 07/31/15 19:59:00 Notes: Max acetaminophen 4000 mg/day (4 gm/day). (Same as: Tylenol Extra Streng th) Start Date: 07/28/15 Stop Date: 07/30/15 Status: Discontinued acetaminophen 500 mg, 1 tab, Route: PO, Drug form: TAB, Q8H, PRN Other -See Comment, Start aditi e: 07/31/15 11:00:00, Duration: 1 day, Stop date: 08/01/15 10:59:00 Notes: Max acetaminophen 4000 mg/day (4 gm/day). (Same as: Tylenol Extra Streng th) Start Date: 07/31/15 Stop Date: 08/01/15 Status: Completed Benadryl 25 mg, 1 tab, Route: PO, Drug form: TAB, Q6H, PRN Itching, Start date: 08/28/15 8:30:00, Duration: 12 hr, Stop date: 08/28/15 20:29:00 Start Date: 08/28/15 Stop Date: 08/28/15 Status: Completed Benadryl 25 mg, 1 tab, Route: PO, Drug form: TAB, Q6H, PRN Itching, Start date: 08/05/15 9:00:00, Duration: 12 hr, Stop date: 08/05/15 20:59:00 Start Date: 08/05/15 Stop Date: 08/05/15 Status: Completed Benadryl 25 mg, 1 tab, Route: PO, Drug form: TAB, Q6H, PRN Itching, Start date: 07/28/15 10:00:00, Duration: 80 hr, Stop date: 07/31/15 20:00:00 Start Date: 07/28/15 Stop Date: 07/30/15 Status: Discontinued Benadryl 25 mg, 1 tab, Route: PO, Drug form: TAB, Q6H, PRN Itching, Start date: 08/21/15 9:30:00, Duration: 12 hr, Stop date: 08/21/15 21:29:00 Start Date: 08/21/15 Stop Date: 08/21/15 Status: Completed Benadryl 25 mg, 1 tab, Route: PO, Drug form: TAB, Q6H, PRN Itching, Start date: 08/12/15 12:00:00, Duration: 12 hr, Stop date: 08/12/15 23:59:00 Start Date: 08/12/15 Stop Date: 08/12/15 Status: Completed Benadryl 25 mg, 1 tab, Route: PO, Drug form: TAB, Q6H, PRN Itching, Start date: 07/31/15 11:00:00, Duration: 1 day, Stop date: 08/01/15 10:59:00 Start Date: 07/31/15 Stop Date: 08/01/15 Status: Completed Venofer + Sodium Chloride 0.9% IV 235 mL 300 mg, 15 mL, Route: IV, Drug form: INJ, ONCALL, Start date: 07/31/15 11:00:00, Duration: 1 day, Stop date: 08/01/15 10:59:00 Notes: Each 5ml contains 100mg elemental iron. Mix with NS(Same as:Venofer)AT A CONC=1-2 mg/mL, EXPIRES AFTER 7 DAYS AT ROOM TEMP .Administer IV only. MED ICATION WASTE Product Size: 100 mgProduct Wasted: ___ mg Start Date: 07/31/15 Stop Date: 07/31/15 Status: Completed Venofer + Sodium Chloride 0.9% IV 250 mL 300 mg, 15 mL, Route: IV, Drug form: INJ, ONCALL, Start date: 08/05/15 9:00:00, Duration: 12 hr, Stop date: 08/05/15 20:59:00 Notes: Each 5ml contains 100mg elemental iron. Mix with NS(Same as:Venofer)bags at a conc=1 - 2 mg/mL are stable x7 days at Room Temp in Ambient LightAdminister IV only. MEDICATION WASTE Product Size: 100 mgProduct Wasted: ___ mg Start Date: 08/05/15 Stop Date: 08/07/15 Status: Completed Venofer + Sodium Chloride 0.9% IV 250 mL 300 mg, 15 mL, Route: IV, Drug form: INJ, ONCALL, Start date: 08/21/15 9:30:00, Duration: 12 hr, Stop date: 08/21/15 21:29:00 Notes: Each 5ml contains 100mg elemental iron. Mix with NS(Same as:Venofer)bags at a conc=1 - 2 mg/mL are stable x7 days at Room Temp in Ambient LightAdminister IV only. MEDICATION WASTE Product Size: 100 mgProduct Wasted: ___ mg Start Date: 08/21/15 Stop Date: 08/21/15 Status: Completed Venofer + Sodium Chloride 0.9% IV 250 mL 300 mg, 15 mL, Route: IV, Drug form: INJ, ONCALL, Start date: 08/12/15 12:00:00, Duration: 12 hr, Stop date: 08/12/15 23:59:00 Notes: Each 5ml contains 100mg elemental iron. Mix with NS(Same as:Venofer)bags at a conc=1 - 2 mg/mL are stable x7 days at Room Temp in Ambient LightAdminister IV only. MEDICATION WASTE Product Size: 100 mgProduct Wasted: ___ mg Start Date: 08/12/15 Stop Date: 08/13/15 Status: Completed Venofer + Sodium Chloride 0.9% IV 250 mL 300 mg, 15 mL, Route: IV, Drug form: INJ, ONCALL, Start date: 08/28/15 8:30:00, Duration: 12 hr, Stop date: 08/28/15 20:29:00 Notes: Each 5ml contains 100mg elemental iron. Mix with NS(Same as:Venofer)bags at a conc=1 - 2 mg/mL are stable x7 days at Room Temp in Ambient LightAdminister IV only. MEDICATION WASTE Product Size: 100 mgProduct Wasted: ___ mg Start Date: 08/28/15 Stop Date: 08/28/15 Status: Completed Venofer + Sodium Chloride 0.9% IV 250 mL 300 mg, 15 mL, Route: IV, Drug form: INJ, ONCALL, Start date: 07/28/15 10:00:00, Duration: 80 hr, Stop date: 07/31/15 20:00:00 Notes: Each 5ml contains 100mg elemental iron. Mix with NS(Same as:Venofer)AT A CONC=1-2 mg/mL, EXPIRES AFTER 7 DAYS AT ROOM TEMP .Administer IV only. MED ICATION WASTE Product Size: 100 mgProduct Wasted: ___ mg Start Date: 07/28/15 Stop Date: 07/30/15 Status: Discontinued Vitamin B12 1,000 microgram, 1 mL, Route: IM, Drug form: INJ, ONCALL, Start date: 07/28/15 1 0:00:00, Duration: 80 hr, Stop date: 07/31/15 19:59:00 Notes: (Same As: Vitamin B12) Start Date: 07/28/15 Stop Date: 07/30/15 Status: Discontinued Results No data available for this section [...]
--- OUTSIDE RECORDS SUMMARY | 2019-03-15 06:12 | XMS REPORT | Summary of Care ---
Author Author [facility] Organization [facility] Address Unknown Phone Unavailable Encounter HQ Diane_kennedi(FIN) [id number] Date(s): 03/28/18 - 03/28/18 [facility] [address] [place] [address]- Encounter Diagnosis Encounter for screening mammogram for malignant neoplasm of breast (Final) - 04/13/18 Discharge Disposition: Home or Self Care Attending Physician: Leeanne Cruz MD Referring Physician: Zack Cortez MD Vital [...]
--- OUTSIDE RECORDS SUMMARY | 2019-03-15 06:12 | XMS REPORT | Summary of Care ---
Author Author [facility] Organization [facility] Address Unknown Phone Unavailable Encounter HQ Diane_kennedi(FIN) [id number] Date(s): 04/26/18 - 04/26/18 [facility] [address] [place] [address]- [phone] Encounter Diagnosis Fibrosclerosis of left breast (Final) - 05/08/18 Discharge Disposition: Home or Self Care Attending [...]
--- NOTE | 2019-03-15 07:10 | NUR ---
SPIRITUAL CARE - Pre-Surgery Assessment: Pt in bed. Pt's at bedside. Pt reported supportive attention from family and friends. Intervention: I provided pastoral presence, hospitality, and sympathetic listening. I acquainted pt with availability of community association manager while hospitalized. Outcome: Pt expressed appreciation for visit. No need for follow up indicated at this time. ESCOBAR Bronsonlain Spiritual Care Department O: [phone] Pager: [phone] ([phone] number calling from)
[2019-03-15 11:04] VITALS: BP 123/82
--- NOTE | 2019-03-15 20:49 | Operative Report ---
DATE OF PROCEDURE: 03/15/2019 SURGEON: Song Reyna DPM ROOM NUMBER: [facility] POSTOPERATIVE DIAGNOSES: 1. Hallux abductovalgus deformity of the right foot. 2. Tailor's bunion deformity, right foot. 3. Hammertoe, 5th digit, right foot. POSTOPERATIVE DIAGNOSES: 1. Hallux abductovalgus deformity of the right foot. 2. Tailor's bunion deformity, right foot. 3. Hammertoe, 5th digit, right foot. TITLE OF OPERATION: 1. Modified silver bunionectomy of the right foot. 2. Tailor's bunionectomy of the right foot. 3. Arthroplasty, 5th digit, right foot, derotational. PROCEDURE IN DETAIL: The patient was taken to the operating room in a mildly sedated state, placed on the operating table in supine position. Following induction of general anesthetic, the right lower extremity was elevated to 60 degrees to exsanguinate before inflating the pneumatic ankle tourniquet to 350 mmHg to create good hemostasis. Right lower extremity was placed on the operating table prior to performing the following procedure. Procedure #1: Modified silver bunionectomy of the right foot. An approximate 4 cm dorsal linear incision was made overlying the dorsal medial aspect of the 1st metatarsophalangeal joint of the right foot. Incision was deepened via sharp and blunt dissection down to the level of the dorsal capsular structure. Care was taken to identify and retract all vital structures encountered. Head of the first metatarsal was delivered in the surgical site, remodeled utilizing oscillating saw, rotary bur. The area was then irrigated with copious amounts of sterile saline solution. The area was then closed with a combination of 3-0 Vicryl, 4-0 Vicryl, and 4-0 Prolene. The attention was then directed to the 5th metatarsal area for tailor's bunionectomy. An approximate 4 cm dorsal lateral incision was made overlying the tailor's bunion site on the 5th metatarsal. The incision was deepened via sharp and blunt dissection down to the level of 5th metatarsal head, which was then remodeled utilizing oscillating saw, rotary bur. The area was irrigated with copious amounts of sterile saline solution. Deep closure was 3-0 Vicryl, subcutaneous closure with 4-0 Vicryl, and skin closure 4-0 Prolene. The area was effectively closed and 5th digit derotational arthroplasty was performed on the right 5th digit. Two converging semi-elliptical incisions were made overlying the proximal interphalangeal joint of the 5th digit of the right foot. These were made derotation with two converging semi-elliptical style overlying the prominent and nucleated lesion over the 5th digit of the right foot. The orientation was from distal medial to lateral proximal to allow for derotation upon closure. The area was opened and the elliptical skin wedge resected. Transverse tenotomy was performed and the head of the proximal phalanx delivered in the surgical site, which was then remodeled utilizing oscillating saw. The area was irrigated with copious amounts of sterile saline solution. Deep closure and tendon repair were 3-0 Vicryl, then in a derotational manner, the skin was closed, which allowed for rectus positioning of the 5th digit, which had been in adductovarus positioning. The closure was affective and all areas of surgery were blocked with 0.5 Marcaine, Decadron [place] eight. Human tissue allograft was used in a flowable form to facilitate soft tissue healing. The area was then dressed with the appropriate mildly compressive dressings and release of the pneumatic thigh tourniquet showed a normal hyperemic flush to all digits of the right foot. The patient left the operating room, vital signs stable, in apparent satisfactory condition, having tolerated both anesthetic and procedure very well. YAZ Arnold/GUS /[id number]
== END | disposition home or self-care (01) ==
LOC: OR 05:53
PROVIDERS: ATTEND Podiatrist Foot Surgery
DX: M20.11 Hallux valgus (acquired), right foot (principal); M21.621 Bunionette of right foot; M20.41 Other hammer toe(s) (acquired), right foot; D64.9 Anemia, unspecified; R00.1 Bradycardia, unspecified; Z01.810 Encounter for preprocedural cardiovascular examination; Z01.812 Encounter for preprocedural laboratory examination; Z01.818 Encounter for other preprocedural examination
CPT/HCPCS: 28110; 28285; 28292; 36415; 71046; 80048; 85025; 93005; C1713; J0690; J1100; J1170; J1885; J2001; J2250 ×2; J2405; J2704; J2710; J3010; Q4100

== ENCOUNTER → 2025-01-07 | Day surgery (SDC) | payer BC ==
[~2025-01-07] MED LIST changes: -BUPIVACAINE HCL 0.5% INJ 30 ML VIAL INJ ONE; -CEFAZOLIN SOD 1 GM VIAL ONE; +COMBIPATCH 0.01 EACH TOP; +DEXAMETHASONE SOD PHOS INJ 4 MG/ML SDV ONE; -DEXAMETHASONE SOD PHOS INJ 4 MG/ML VIAL ONE; -HYDROMORPHONE 1MG/1ML INJ ONE; +HYDROMORPHONE 2MG/ML ONE; -KETAMINE HCL INJ 50 MG/ML 10 ML VIAL ONE; +MELOXICAM7.5 MG PO; -MIDAZOLAM HCL 5MG/ML 2ML VIAL ONE; -NEOSTIGMINE 1 MG/ML 10ML VIAL ONE; +VIT K PO; +[UNRECOGNIZED DRUG - OTHER] PO
[2025-01-07] MEDS: LACTATED RINGER'S 1,000 ML ONE (06:03)
[2025-01-07 10:00] VITALS: BP 136/84; PULSE 61; RESP 18; O2SAT 97
[2025-01-07] MEDS: ONDANSETRON HCL INJ 2MG/ML 2ML 2 MG/ML VIAL IV ONE (10:05)
== END | disposition home or self-care (01) ==
LOC: OR 05:30
PROVIDERS: ATTEND Specialist
DX: S83.242A Other tear of medial meniscus, current injury, left knee, initial encounter (principal); S83.282A Other tear of lateral meniscus, current injury, left knee, initial encounter; M22.42 Chondromalacia patellae, left knee; Y93.55 Activity, bike riding; Z79.1 Long term (current) use of non-steroidal anti-inflammatories (NSAID); Z82.49 Family history of ischemic heart disease and other diseases of the circulatory system; Z01.810 Encounter for preprocedural cardiovascular examination
CPT/HCPCS: 29880; 93005; J0690; J1100; J1171; J1885; J2003; J2250; J2405; J2704; J3010; J7121